=== PATIENT | female | born 1990 | race Caucasian/White ===

== ENCOUNTER 2017-01-08 17:14 | Emergency (ER) | payer BC ==
--- NOTE | 2017-01-08 18:32 | EDM.PDOC ---
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 Patient indicates she's had several positive tests but has PCOS and isn't always aware if she is and or how long she has been .] Review of systems: As per history of present illness and below otherwise all systems reviewed and negative. Past medical history: As per history of present illness and as reviewed below otherwise noncontributory. Surgical history: As per history of present illness and as reviewed below otherwise noncontributory. Social history: No reported history of drug or alcohol abuse. Family history: As per history of present illness and as reviewed below otherwise noncontributory. Physical exam: HEENT: Atraumatic, normocephalic, pupils reactive, negative for conjunctival pallor or scleral icterus, mucous membranes moist, throat clear, neck supple, nontender, trachea midline. Lungs: Clear to auscultation, breath sounds equal bilaterally, chest nontender. Heart: S1S2, regular, negative for clicks, rubs, or JVD. Abdomen: Soft, nondistended, nontender. Negative for masses or hepatosplenomegaly. Negative for costovertebral tenderness. Pelvis: Stable nontender. Genitourinary: Deferred. Rectal: Deferred. Extremities: Atraumatic, negative for cords or calf pain. Neurovascular unremarkable. Neuro: Awake, alert, oriented. Cranial nerves II through XII unremarkable. Cerebellum unremarkable. Motor and sensory unremarkable throughout. Exam nonfocal. Global assessment was benign save painless bleeding as mentioned in history of present illness. Consult with Dr Ramirez the patient and she is to followup with [facility] tomorrow and only give 50 mics of RhoGAM if not arty given as a mini dose would be sufficient per her Diagnostics: [1st Trimester Vag bleed workup] Therapeutics: [] Impression: [Threatened ] Plan: [Prescriptions tomorrow] Definitive disposition and diagnosis as appropriate pending reevaluation and review of above. (Eric Steele) Please note that Dr. Ramirez was contacted and followup was organized. She requested that mini RhoGAM be given but according to the lab they are unable to do that and the patient will have to receive full dose RhoGAM. We will go ahead and proceed to give that dose as lab is unable to accommodate Dr. Ramirez's request. (Pat Damon) - Related Data Allergies/ADRs: Allergies Allergy/AdvReac Type Severity Reaction Status Date / Time No Known Allergies Allergy Verified 01/25/15 16:13 Home Meds: Home Meds . 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 History: Reports: Polycystic Ovaries, Musculoskeletal History: Reports: None Neurological History: Reports: None Psychiatric History: Reports: None Endocrine/Metabolic History: Reports: None Hematologic History: Reports: None Immunologic History: Reports: None Oncologic (Cancer) History: Reports: None Dermatologic History: Reports: None - Infectious Disease History Infectious Disease History: Reports: None - Past Surgical History Head Surgeries/Procedures: Reports: None HEENT Surgical History: Reports: Other (see below) Other HEENT Surgeries/Procedures: 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 Cardiovascular Surgical History: Reports: None Respiratory Surgical History: Reports: None GI Surgical History: Reports: Cholecystectomy Female Surgical History: Reports: section Endocrine Surgical History: Reports: None Neurological Surgical History: Reports: None Musculoskeletal Surgical History: Reports: None Dermatological Surgical History: Reports: None Social & Family History - Family History Family Medical History: Noncontributory - Tobacco Use Smoking Status *Q: Never Smoker Second Hand Smoke Exposure: No - Caffeine Use Caffeine Use: Reports: Coffee - Alcohol Use Days Per Week of Alcohol Use: 0 Number of Drinks Per Day: 0 Total Drinks Per Week: 0 - Recreational Drug Use Recreational Drug Use: No Drug Use in Last 12 Months: No ED ROS GENERAL - Review of Systems Review Of Systems: See Below (See history of present illness) ED EXAM - Physical Exam Exam: See Below (See history of present illness) Departure - Departure Time of Disposition: 20:46 Condition: good - Departure Disposition: Home, Self-Care 01 Clinical Impression: Threatened Referrals: PCP,None [Primary Care Provider] - Kailyn Aleman PA [Physician Instructor Looping] - Forms: ED Department Discharge Additional Instructions: The following information is given to patients seen in the emergency department who are being discharged to home. This information is to outline your options for follow-up care. We provide all patients seen in our emergency department with a follow-up referral. The need for follow-up, as well as the timing and circumstances, are variable depending upon the specifics of your emergency department visit. If you don't have a primary care physician on staff, we will provide you with a referral. We always advise you to contact your personal physician following an emergency department visit to inform them of the circumstance of the visit and for follow-up with them and/or the need for any referrals to a consulting specialist. The emergency department will also refer you to a specialist when appropriate. This referral assures that you have the opportunity for follow-up care with a specialist. All of these measure are taken in an effort to provide you with optimal care, which includes your follow-up. Under all circumstances we always encourage you to contact your private physician who remains a resource for coordinating your care. When calling for follow-up care, please make the office aware that this follow-up is from your recent emergency room visit. If for any reason you are refused follow-up, please contact the [facility] Emergency Department at and asked to speak to the emergency department charge nurse. Nalini Ceron tomorrow and they will establish a time to see you Return to ED as needed as discussed
[2017-01-08] MEDS ORDERED: Rho(D) Immune Globulin 300 MCG/2 ML Syringe IM ONE (20:37)
[2017-01-08 23:45] VITALS: BP 144/87
--- NOTE | 2017-01-09 10:11 | US ---
EXAM DATE: 01/08/17 PATIENT'S AGE: 26 Patient: LUMA CHILDERS Facility: [place], [place] Site . Site : [id number] Study: US OB Pelvis [id number]/11/2017 8:20:10 PM Ordering Physician: Doctor Lobato Final Report: INDICATION: Bleeding TECHNIQUE: Ultrasound OB pelvis transvaginal. Real time virk scale imaging of the pelvis was performed. COMPARISON: None FINDINGS: Pale and Gestational age by LMP: 16 weeks 5 days Estimated due date by LMP: 06/20/2017 Present within the endometrial canal is a hypoechoic septated area in the fundal region. Findings not typical appearance for a gestational sac although this cannot be excluded. If this represents a gestational sac. The mean gestational sac diameter is 1.63 centimeters consistent with gestational age of 6 weeks 5 days. Correlate with beta HCG levels. No evidence of yolk sac or pole. The cervix is closed. The myometrium appears normal. The ovaries are of normal size. There are no suspicious fluid collections noted in the cul-de-sac. IMPRESSION: Present in the image canals the level of the fundus is a septated hypoechoic area. This is not the typical appearance for gestational sac. This represents a gestational sac within the mean gestational sac diameter is consistent with gestational age of 6 weeks 5 days. No evidence of yolk sac or pole or heart tones. Correlate with beta HCG levels. Sonographically normal ovaries and adnexa. No free fluid. Dictated by Gonzalo Skelton MD @ 01/08/2017 8:33:56 PM Dictated by: Gonzalo Skelton MD @ 01/08/2017 20:33:59 (Electronic Signature) Report Signed by Proxy and Original Signed Document filed in the Medical Record. FAIZA
== END 2017-01-08 21:44 | disposition home or self-care (01) ==
LOC: MW.ED 17:14
DX: O20.0 Threatened abortion (principal); Z90.49 Acquired absence of other specified parts of digestive tract; R73.03 Prediabetes; E28.2 Polycystic ovarian syndrome; I10 Essential (primary) hypertension; L29.8 Other pruritus; Z32.00 Encounter for pregnancy test, result unknown
CPT/HCPCS: 36415; 76801; 80053; 80061; 81001; 81025; 82670; 83001; 83002; 83036; 83525; 84144; 84443; 84702; 85025; 85027; 86850; 86900; 86901; 87086; 87480; 87510; 87660; 93005; 96372; 99284; J2790; J2791; 99283

== ENCOUNTER 2017-02-07 06:30 | Day surgery (SDC) | payer BC ==
[~2017-02-07 06:30] MED LIST: Lactated Ringers 1,000 ML IV SCH
--- NOTE | 2017-02-07 07:08 | PCM.PREANE ---
Preanesthetic Assessment - Anesthesia/Transfusion/Family Hx Anesthesia History: Prior Anesthesia Without Reaction Other Type of Anesthesia Reaction Comment: pt states she gets nauseated when cart moves from recovery to room Family History of Anesthesia Reaction: No Transfusion History: No Prior Transfusion(s) Intubation History: Unknown - Review of Systems General: No Symptoms Pulmonary: No Symptoms Cardiovascular: No Symptoms Gastrointestinal: No symptoms Neurological: No Symptoms Other: Reports: None - Physical Assessment O2 Sat by Pulse Oximetry: 98 Respiratory Rate: 16 Vital Signs: Last Vital Signs Temp 37.0 C 02/07/17 06:58 Pulse 91 02/07/17 06:58 Resp 16 02/07/17 06:58 BP 145/93 H 02/07/17 06:58 Pulse Ox 98 02/07/17 06:58 Height: 1.54 m Weight: 87.997 kg ASA Class: 2 Mental Status: Alert & Oriented x3 Airway Class: Mallampati = 2 Dentition: Reports: Normal Dentition Thyro-Mental Finger Breadths: 3 Mouth Opening Finger Breadths: 1 ROM/Head Extension: Full Lungs: Clear to auscultation, Normal respiratory effort Cardiovascular: Regular Rate, Regular Rhythm - Lab Values: Laboratory Last Values WBC 4.67 K/uL (4.0-11.0) 02/07/17 06:44 RBC 3.60 M/uL (4.30-5.90) L 02/07/17 06:44 Hgb 9.9 g/dL (12.0-16.0) L 02/07/17 06:44 Hct 30.7 % (36.0-46.0) L 02/07/17 06:44 MCV 85.3 fL (80.0-98.0) 02/07/17 06:44 MCH 27.5 pg (27.0-32.0) 02/07/17 06:44 MCHC 32.2 g/dL (31.0-37.0) 02/07/17 06:44 RDW Std Deviation 41.8 fl (28.0-62.0) 02/07/17 06:44 RDW Coeff of Trinity 14 % (11.0-15.0) 02/07/17 06:44 Plt Count 274 K/uL (150-400) 02/07/17 06:44 MPV 9.00 fL (7.40-12.00) 02/07/17 06:44 Neut % (Auto) 48.9 % (48.0-80.0) 02/07/17 06:44 Lymph % (Auto) 40.0 % (16.0-40.0) 02/07/17 06:44 Worth % (Auto) 6.4 % (0.0-15.0) 02/07/17 06:44 Eos % (Auto) 4.5 % (0.0-7.0) 02/07/17 06:44 Baso % (Auto) 0.2 % (0.0-1.5) 02/07/17 06:44 Neut # (Auto) 2.3 K/uL (1.4-5.7) 02/07/17 06:44 Lymph # (Auto) 1.9 K/uL (0.6-2.4) 02/07/17 06:44 Worth # (Auto) 0.3 K/uL (0.0-0.8) 02/07/17 06:44 Eos # (Auto) 0.2 K/uL (0.0-0.7) 02/07/17 06:44 Baso # (Auto) 0.0 K/uL (0.0-0.1) 02/07/17 06:44 Nucleated RBC % 0.0 /100WBC 02/07/17 06:44 Nucleated RBCs # 0 K/uL 02/07/17 06:44 - Allergies Allergies/Adverse Reactions: Allergies Allergy/AdvReac Type Severity Reaction Status Date / Time No Known Allergies Allergy Verified 01/25/15 16:13 - Blood Blood Available: No - Anesthesia Plan Pre-Op Medication Ordered: None - Acknowledgements Anesthesia Type Planned: General Anesthesia Pt an Appropriate Candidate for the Planned Anesthesia: Yes Alternatives and Risks of Anesthesia Discussed w Pt/Guardian: Yes Pt/Guardian Understands and Agrees with Anesthesia Plan: Yes PreAnesthesia Questionnaire HEENT History: Reports: Other (see below) Other HEENT History: wears glasses/contacts Cardiovascular History: Reports: None Respiratory History: Reports: None Gastrointestinal History: Reports: None Genitourinary History: Reports: None 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 , Polycystic Ovaries, Musculoskeletal History: Reports: None Neurological History: Reports: None Psychiatric History: Reports: Anxiety Endocrine/Metabolic History: Reports: Obesity/BMI 30+ Hematologic History: Reports: None Immunologic History: Reports: None Oncologic (Cancer) History: Reports: Other (see below) (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) Dermatologic History: Reports: None - Infectious Disease History Infectious Disease History: Reports: None - Past Surgical History Head Surgeries/Procedures: Reports: None HEENT Surgical History: Reports: Naso-sinus surgery, Oral surgery, Other (see below) Other HEENT Surgeries/Procedures: oral surgery x4 for excision of tumor and skin grafts, sinus surgery x1 GI Surgical History: Reports: Cholecystectomy Female Surgical History: Reports: section (x2) Dermatological Surgical History: Reports: Skin graft - SUBSTANCE USE Smoking Status *Q: Never Smoker Second Hand Smoke Exposure: No Days Per Week of Alcohol Use: 0 Number of Drinks Per Day: 0 Total Drinks Per Week: 0 Recreational Drug Use History: No - HOME MEDS Home Medications: Home Meds LORazepam 1 mg PO ASDIRECTED PRN 02/06/17 [History] metFORMIN HCl [Metformin HCl] 500 mg PO BID 02/06/17 [History] - CURRENT (IN HOUSE) MEDS Current Meds: Current Medications Lactated Ringer's (Ringers, Lactated) 1,000 mls @ 100 mls/hr IV ASDIRECTED SHANELL Last Admin: 02/07/17 06:57 Dose: 100 mls/hr
[2017-02-07] MEDS ORDERED: Lidocaine 2% 5 ML SDV ONE (07:17)
[2017-02-07] MEDS ORDERED: Ondansetron 4 MG/2 ML SDV ONE (07:17)
[2017-02-07] MEDS ORDERED: Propofol 200 MG/20 ML SDV ONE (07:17)
[2017-02-07] MEDS ORDERED: Midazolam 1 MG/ML 2 ML SDV ONE (07:17)
[2017-02-07] MEDS ORDERED: fentaNYL 250 MCG/5 ML SDV ONE (07:17)
[2017-02-07] MEDS ORDERED: Scopolamine 1.5 MG Transdermal Patch TRDERM PRN (07:21)
[2017-02-07] MEDS ORDERED: Sodium Chloride 0.9% 20 ML ONE (07:48)
[2017-02-07] MEDS ORDERED: ceFAZolin 1 GM Vial ONE (07:48)
[2017-02-07] MEDS ORDERED: fentaNYL 100 MCG/2 ML SDV IVPUSH PRN (08:06)
[2017-02-07] MEDS ORDERED: Methylergonovine 0.2 MG/1 ML Amp ONE (08:09)
--- NOTE | 2017-02-07 08:35 | PCM.OPNOTE ---
- General Post-Op/Procedure Note Date of Surgery/Procedure: 02/07/17 Operative Procedure(s): suction dilatation and curettage Findings: Uterus anteverted, 9 week size preop, 7-8 week size, firm postop, sounds to 9 cm , moderate amount of tissue obtained. Pre Op Diagnosis: incomplete miscarriage with hemorrhage Post-Op Diagnosis: Same Anesthesia Technique: General mask Primary Surgeon: Sarah Messer Anesthesia Provider: Gonzalo Laws Cork Grinder: Dante Whitlock Pathology: products of conception Fluid Replacement, Intraop: 700 EBL in mLs: 70 Complications: None Known Condition: Good
[2017-02-07 11:14] VITALS: BP 136/70
--- NOTE | 2017-02-08 06:13 | OR ---
SURGEON: Sarah Messer M.D. DATE OF PROCEDURE: 02/07/2017 PREOPERATIVE DIAGNOSIS: Incomplete with hemorrhage. POSTOPERATIVE DIAGNOSIS: Incomplete with hemorrhage. PROCEDURE: Suction, dilatation, and curettage. ANESTHESIA: General mask. ESTIMATED BLOOD LOSS: 70 mL. FLUIDS: 700 mL crystalloid. FINDINGS: Preoperatively, uterus was anteverted 9-week size, somewhat boggy. Postoperatively, the uterus was anteverted 7 to 8 week size firm with minimal bleeding. The uterus sounded to 9 cm. COMPLICATIONS: None known. DISPOSITION: Stable to recovery. PATHOLOGY SPECIMEN: Products of conception. BRIEF HISTORY: This is a 26-year-old female. She has a known intrauterine loss which was initially diagnosed. She requested expectant management followed by Cytotec. After the Cytotec, she felt that she passed tissue. Her hCG dropped from greater than a 1000 down to less than 100. However, she continued to have irregular and sometimes heavy bleeding. Therefore, at her 2-week postoperative check, I did repeat her hCG which had not dropped as expected and therefore followup ultrasound was performed, which showed retained products of conception. Therefore, I recommended proceeding with suction, dilatation, and curettage with risks discussed including bleeding, infection, uterine perforation with injury to surrounding organs, risk of thromboembolic event, and risk of anesthesia. Understanding all these risks, she does desire to proceed. The patient is Rh negative and has received RhoGAM in the office. DESCRIPTION OF PROCEDURE: With the patient in dorsal lithotomy position, under adequate general mask analgesia (please see anesthesia note for an assessment of her airway secondary to prior oral mass). The perineum and vagina were prepped with Betadine and draped in usual fashion for vaginal surgery. The bladder had been drained with a straight catheter. SCDs were in place and she did receive 2 g of Ancef IV. After an appropriate time-out was held. Bimanual examination revealed an anteverted 9-week size uterus, somewhat boggy. The speculum was placed in the vagina. The anterior cervix was grasped with an Allis clamp. The 2 mm Hegar dilator was easily passed through the internal os of the cervix to the fundus which sounded to 9 cm. The cervix was further dilated to a 10 mm Hegar dilator. The 10 mm suction curette was placed to the uterine fundus and with pressure in place was retracted in repetitively turning motion with a moderate amount of tissue obtained. On the first pass 3 additional passes were taken, no further tissue was obtained. There was minimal blood. Therefore, very gentle sharp curettage was performed at the 12, 3, 6, and 9 o'clock position. A good uterine cry was felt on all surfaces. Therefore, the speculum was removed from the vagina. Bimanual examination revealed a firm uterus. Due to her history of bleeding and hemoglobin today of 9.9, she did receive Methergine 0.2 mg IM prior to the end of the case. Final sponge, needle, instrument counts were reported as correct. There were no known complications. The patient was transferred to recovery in good condition. ADONIS CASTRO /[id number]
== END 2017-02-07 10:15 | disposition home or self-care (01) ==
LOC: MW.SDS 06:30
PROVIDERS: ATTEND Obstetrics & Gynecology
DX: O03.1 Delayed or excessive hemorrhage following incomplete spontaneous abortion (principal); E28.2 Polycystic ovarian syndrome; D64.9 Anemia, unspecified; Z98.890 Other specified postprocedural states; Z90.49 Acquired absence of other specified parts of digestive tract; Z98.818 Other dental procedure status
CPT/HCPCS: 36415; 59812; 85025; 86850; 86870; 86900; 86901; 88305; A9270; J0690; J2210; J2250; J2405; J3010; J7120; 01965; J2704

== ENCOUNTER 2018-06-23 05:02 | Inpatient (IN) | payer BC, OTHER ==
[2018-06-23] MEDS ORDERED: Sodium Chloride 0.9% 10 ML Syringe FLUSH PRN (05:08)
[2018-06-23] MEDS ORDERED: Sodium Chloride 0.9% 2.5 ML Syringe FLUSH PRN (05:08)
[2018-06-23] MEDS ORDERED: Citric Acid/Sodium Citrate Solution 30 ML Cup PO ONE (05:08)
[2018-06-23] MEDS ORDERED: ceFAZolin 2 GM in Premix Bag 1 BAG IV ONE (05:11)
[2018-06-23] MEDS ORDERED: Oxytocin/0.9 % Sodium Chloride 30 UNIT/500 ML BAG IV SCH (05:15)
[2018-06-23] MEDS: Lactated Ringers 1,000 ML IV SCH ×2 (05:43→07:21)
--- NOTE | 2018-06-23 07:07 | PCM.PREANE ---
Preanesthetic Assessment - Anesthesia/Transfusion/Family Hx Anesthesia History: Prior Anesthesia Reaction (prior spinal with severe NV, pt requests NO DURAMORPH this time) Other Type of Anesthesia Reaction Comment: pt states she gets nauseated when cart moves from recovery to room Family History of Anesthesia Reaction: No Transfusion History: No Prior Transfusion(s) Intubation History: Unknown - Review of Systems General: No Symptoms Pulmonary: No Symptoms Cardiovascular: No Symptoms Gastrointestinal: No Symptoms Neurological: No Symptoms Other: Reports: None - Physical Assessment NPO Status Date: 06/22/18 NPO Status Time: 23:00 Height: 5 ft Weight: 88.904 kg ASA Class: 2 Mental Status: Alert & Oriented x3 Airway Class: Mallampati = 2 Dentition: Reports: Normal Dentition Thyro-Mental Finger Breadths: 3 (Small mouth) Mouth Opening Finger Breadths: 3 ROM/Head Extension: Full Lungs: Clear to Auscultation, Normal Respiratory Effort Cardiovascular: Regular Rate, Regular Rhythm - Lab Values: Laboratory Last Values WBC 8.05 K/uL (4.0-11.0) 06/22/18 15:58 RBC 3.78 M/uL (4.30-5.90) L 06/22/18 15:58 Hgb 10.1 g/dL (12.0-16.0) L 06/22/18 15:58 Hct 31.1 % (36.0-46.0) L 06/22/18 15:58 MCV 82.3 fL (80.0-98.0) 06/22/18 15:58 MCH 26.7 pg (27.0-32.0) L 06/22/18 15:58 MCHC 32.5 g/dL (31.0-37.0) 06/22/18 15:58 RDW Std Deviation 41.6 fl (28.0-62.0) 06/22/18 15:58 RDW Coeff of Trinity 14 % (11.0-15.0) 06/22/18 15:58 Plt Count 227 K/uL (150-400) 06/22/18 15:58 MPV 9.50 fL (7.40-12.00) 06/22/18 15:58 Nucleated RBC % 0.0 /100WBC 06/22/18 15:58 Nucleated RBCs # 0 K/uL 06/22/18 15:58 Blood Type O NEGATIVE 06/22/18 15:58 Antibody Screen NEGATIVE 06/22/18 15:58 - Allergies Allergies/Adverse Reactions: Allergies Allergy/AdvReac Type Severity Reaction Status Date / Time No Known Allergies Allergy Verified 06/18/18 13:21 - Anesthesia Plan Free Text/Narrative:: Upper Right portion of the oral hard palate shows grafting from her tumor removal surgery. Patient denies any surgical intervention into the lower portions of the airway. 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: Ectopic , Polycystic Ovaries, : 5 Para: 2 LMP (Approximate): Musculoskeletal History: Reports: None Neurological History: Reports: None Psychiatric History: Reports: Anxiety Endocrine/Metabolic History: Reports: Diabetes, Gestational, Obesity/BMI 30+ Hematologic History: Reports: None Immunologic History: Reports: None Oncologic (Cancer) History: Reports: None Dermatologic History: Reports: None - Infectious Disease History Infectious Disease History: Reports: Chicken Pox - Past Surgical History Head Surgeries/Procedures: Reports: None HEENT Surgical History: Reports: Naso-Sinus Surgery, Oral Surgery, Other (See Below) Other HEENT Surgeries/Procedures: oral surgery x4 for excision of tumor and skin grafts, sinus surgery x1 Cardiovascular Surgical History: Reports: None Respiratory Surgical History: Reports: None GI Surgical History: Reports: Cholecystectomy Female Surgical History: Reports: Section, Other (See Below) Other Female Surgeries/Procedures: x2 Endocrine Surgical History: Reports: None Neurological Surgical History: Reports: None Musculoskeletal Surgical History: Reports: None Dermatological Surgical History: Reports: Skin Graft - SUBSTANCE USE Smoking Status *Q: Never Smoker Second Hand Smoke Exposure: No Recreational Drug Use History: No - HOME MEDS Home Medications: Home Meds Insulin Isophane NPH, Human [NovoLIN N] 15 units SUBCUT BEDTIME 06/18/18 [ History] PNV95/Ferrous Fumarate/FA [ Vitamin Tablet] 1 tab PO DAILY 06/18/18 [ History] Sertraline HCl 50 mg PO DAILY 06/18/18 [History] - CURRENT (IN HOUSE) MEDS Current Meds: Current Medications Lactated Ringer's (Ringers, Lactated) 1,000 mls @ 500 mls/hr IV BOLUS SHANELL Last Admin: 06/23/18 05:43 Dose: 500 mls/hr Oxytocin/Sodium Chloride (Oxytocin 30 Unit/500 Ml-Ns) 30 unit in 500 mls @ 250 mls/hr IV TITRATE SHANELL Sodium Chloride (Saline Flush) 10 ml FLUSH ASDIRECTED PRN PRN Reason: Keep Vein Open Sodium Chloride (Saline Flush) 2.5 ml FLUSH ASDIRECTED PRN PRN Reason: Keep Vein Open Discontinued Medications Citric Acid/Sodium Citrate (Bicitra Solution) 30 ml PO ONETIME ONE Stop: 06/23/18 05:09 Cefazolin Sodium/Dextrose 2 gm (/ Premix) 50 mls @ 100 mls/hr IV ONETIME ONE Stop: 06/23/18 05:40
[2018-06-23] MEDS ORDERED: Octyl 2-Cyanoacrylate 1 Tube ONE (07:25)
[2018-06-23] MEDS ORDERED: Citric Acid/Sodium Citrate Solution 30 ML Cup ONE (07:52)
[2018-06-23] MEDS ORDERED: Sodium Chloride 0.9% 20 ML ONE (08:18)
[2018-06-23] MEDS ORDERED: ePHEDrine 50 MG/ML SDV ONE (08:18)
[2018-06-23] MEDS ORDERED: Oxytocin 10 Units/1 ML SDV ONE (08:18)
[2018-06-23] MEDS ORDERED: Ondansetron 4 MG/2 ML SDV ONE (08:18)
[2018-06-23] MEDS ORDERED: ceFAZolin/Dextrose,Iso-Osmotic 2 GM/50 ML Duplex Bag IV ONE (08:19)
[2018-06-23] MEDS ORDERED: Midazolam 1 MG/ML 2 ML SDV ONE (08:19)
[2018-06-23] MEDS ORDERED: Methylergonovine 0.2 MG/1 ML Amp ONE (08:42)
--- NOTE | 2018-06-23 09:09 | PCM.OPNOTE ---
- General Post-Op/Procedure Note Date of Surgery/Procedure: 06/23/18 Operative Procedure(s): repeat low transverse with bilateral salpingectomy Findings: Normal pelvis, with omental adhesions to anterior abdominal wall, liveborn female 06/08 3080 grams. Pre Op Diagnosis: 38 weeks, GDMA2, history of ENT tumor, prior , desires sterilization Post-Op Diagnosis: Same Anesthesia Technique: Spinal Primary Surgeon: Sarah Messer Anesthesia Provider: Gonzalo Laws Carbon Paste Mixer Operator: Dante Whitlock Pathology: bilateral fallopian tubes, placenta disposal. Fluid Replacement, Intraop: 2,200 Output, Urine Amount: 25 EBL in mLs: 600 Complications: None Known Condition: Good Free Text/Narrative:: Intake & Output 06/22/18 06/23/18 06/23/18 22:59 06:59 14:59 Intake Total 1000 Balance 1000
[2018-06-23] MEDS ORDERED: Bisacodyl 10 MG Supp RECTAL PRN (09:10)
[2018-06-23] MEDS ORDERED: Acetaminophen/oxyCODONE 325-5 MG Tab PO PRN (09:10)
[2018-06-23] MEDS ORDERED: Lanolin 100% Cream 7 GM Tube TOP PRN (09:10)
[2018-06-23] MEDS ORDERED: diphenhydrAMINE 50 MG/ML SDV IVPUSH PRN (09:10)
[2018-06-23] MEDS ORDERED: Ondansetron 4 MG/2 ML SDV IV PRN (09:10)
[2018-06-23] MEDS ORDERED: Tranexamic Acid 1,000 MG in Sodium Chloride 0.9% 100 ML IV PRN (09:10)
[2018-06-23] MEDS ORDERED: Lactated Ringers 1,000 ML IV SCH (09:15)
[2018-06-23] MEDS: Ketorolac 30 MG/ML SDV IVPUSH SCH ×3 (09:37→21:00)
--- NOTE | 2018-06-23 10:13 | PCM.POSTAN ---
POST ANESTHESIA ASSESSMENT - MENTAL STATUS Mental Status: Alert, Oriented - RESPIRATORY Respiratory Status: Respiratory Rate WNL, Airway Patent, O2 Saturation Stable - CARDIOVASCULAR CV Status: Pulse Rate WNL, Blood Pressure Stable - GASTROINTESTINAL GI Status: No Symptoms - PAIN Pain Score: 0 (spinal receding slowly) - POST OP HYDRATION Hydration Status: Adequate & Stable
[2018-06-23] MEDS: fentaNYL/Normal Saline 300 MCG/30 ML PCA Vial IV SCH ×2 (10:39→17:00)
--- NOTE | 2018-06-23 12:07 | OR ---
SURGEON: Sarah Messer M.D. DATE OF PROCEDURE: 06/23/2018 PREOPERATIVE DIAGNOSES: 1. 38 week intrauterine . 2. Prior delivery. 3. Gestational diabetes type A2, on insulin. 4. History of ENT tumor with limited airway. 5. Desires sterilization. POSTOPERATIVE DIAGNOSES: 1. 38 week intrauterine . 2. Prior delivery. 3. Gestational diabetes type A2, on insulin. 4. History of ENT tumor with limited airway. 5. Desires sterilization. PROCEDURES: Repeat low-transverse section with bilateral salpingectomy. PROTECTION ANALYST: Beni Elder MS4. ANESTHESIA: Spinal. ESTIMATED BLOOD LOSS: 600 mL. FLUIDS: 2200 mL. FINDINGS: Live born female, scores 9 and 9. Weight 3080 g. Normal-appearing uterus, tubes, and ovaries. Omental adhesions to the anterior abdominal wall. Low-lying anterior placenta. COMPLICATIONS: None known. DISPOSITION: Mother is in recovery in good condition. is in nursery in good condition. BRIEF HISTORY: This is a 27-year-old female, who presents for repeat delivery due to multiple risk factors, including repeat , prior , diabetes, and particularly related to airway disease. She was approved for permanent sterilization by bilateral salpingectomy. Alternatives were offered including hormonal contraception, long-acting reversible contraception and sterilization including vasectomy and she declined all of them, desires bilateral salpingectomy at the time of understanding risk of regret as well as reduced risk of ovarian cancer. She understands it is irreversible. Risk of delivery was discussed including bleeding, infection, injury to bowel, bladder, blood vessels, ureters or other organs, risk of thromboembolic event, and risk of anesthesia. Understanding all these risks, she does desire to proceed. DESCRIPTION OF PROCEDURE: With the patient in the left tilt position, under adequate spinal analgesia, the abdomen was prepped with chlorhexidine and draped in usual fashion for abdominal surgery. SCDs were in place. Rey catheter had been placed. An appropriate time-out was held. After documentation of adequate analgesia was performed, the prior cicatrix was excised and the incision was carried through subcutaneous tissue to the fascia, which was scored transversely in the midline. The fascial incision was extended using curved [place] scissors. The fascia was elevated from the underlying rectus muscles and using sharp and blunt dissection. The rectus muscles were sharply in the midline. A finger was used to enter the peritoneal cavity. There were omental adhesions cephalad, but none caudad to the entry site. The incision was extended using sharp and blunt dissection. The Tj O retractor was placed. The visceroperitoneum over the lower uterine segment was incised to develop an adequate bladder flap. The transverse curvilinear incision was made over the lower uterine segment with a scalpel and a finger was used to enter the amniotic cavity. Clear fluid was noted. The incision was extended. The anterior placenta extended up to the level of the incision and there was some bleeding from the placenta I elevated the head to the uterine incision, but with fundal pressure. I felt it was safer to quickly deliver the infant with the bleeding anterior placenta. Therefore I did place the vacuum in the sagittal midline 2 cm with mid point 2 cm anterior to the posterior fontanelle and with no pop offs and minimal pressure, I was able to deliver the head near the uterine incision with fundal pressure with subsequent delivery of the 's shoulders and body without any difficulty. The infant was bulb suctioned by nose and mouth. The cord was clamped x2 and cut and the was handed to the nurse in attendance at delivery. The infant is a liveborn female, scores 9 and 9, weighing 3080 g. The was noted to have a VSD. Dr. Leal has been notified. The had a echocardiogram antepartum. The placental plane was able to be palpated and the placenta was removed by manual extraction. The uterus was cleaned with a dry laparotomy tape. The cervix was opened with a ring forceps. The uterine incision was closed with a running lock suture of 0 Polysorb followed by an imbricating layer of 0 Polysorb. The fundus was firm. The tubes and ovaries were inspected, appeared normal. The left tube was grasped with a [place] clamp. The mesosalpinx was incised using the Harmonic wave setting of 3 to the proximal tube where it was transected. This was repeated on the opposite side. The base of the mesosalpinx was inspected and was hemostatic. The uterine incision was inspected and was hemostatic. Fundal massage was performed and the uterus became very firm with fundal massage. However, I did give her Methergine 0.2 mg subcu prophylactically and the retractor was removed. The uterine incision was again inspected. The rectus muscle and peritoneum were loosely approximated in the midline using a running mattress suture of 0 Polysorb. The fascia was closed with a running suture of 0 Polysorb. Subcutaneous tissue was irrigated. Any areas of bleeding that were noted were cauterized. The skin was closed with a running subcuticular suture of 3-0 Monocryl followed by Dermabond. Final sponge, needle, and instrument counts were reported as correct. There were no known complications. Mother was transferred to recovery in good condition. Infant is in nursery in good condition. ADONIS CASTRO /[id number]
--- NOTE | 2018-06-23 19:39 | PCM48HPAN ---
Post Anesthesia Note - EVALUATION WITHIN 48HRS OF ANESTHETIC Vital Signs in Normal Range: Yes Patient Participated in Evaluation: Yes Respiratory Function Stable: Yes Airway Patent: Yes Cardiovascular Function Stable: Yes Hydration Status Stable: Yes Pain Control Satisfactory: Yes Nausea and Vomiting Control Satisfactory: Yes Mental Status Recovered: Yes Resp Rate: 16
[2018-06-23] MEDS: Docusate Sodium 100 MG Cap PO SCH (21:00)
[2018-06-24] MEDS: fentaNYL/Normal Saline 300 MCG/30 ML PCA Vial IV SCH (00:40)
[2018-06-24] MEDS: Ketorolac 30 MG/ML SDV IVPUSH SCH ×2 (03:39→09:04)
--- NOTE | 2018-06-24 08:12 | PCM.PNPP ---
<Carol Avery - Last Filed: 06/24/18 08:09> - General Info Date of Service: 06/24/18 Functional Status: Reports: Pain Controlled, Tolerating Diet, Ambulating, Urinating - Review of Systems General: Denies: Fever, Weakness, Fatigue Pulmonary: Denies: Shortness of Breath, Pleuritic Chest Pain, Cough Cardiovascular: Denies: Chest Pain, Palpitations, Dyspnea on Exertion Gastrointestinal: Denies: Abdominal Pain Genitourinary: Denies: Dysuria - General Info Date of Service: 06/24/18 - Patient Data Vital Signs - Most Recent: Last Vital Signs Temp 36.6 C 06/24/18 03:56 Pulse 71 06/24/18 03:56 Resp 16 06/24/18 03:56 BP 124/61 06/24/18 03:56 Pulse Ox 97 06/24/18 03:56 Weight - Most Recent: 88.904 kg I&O - Last 24 Hours: Intake & Output 06/23/18 06/24/18 06/24/18 22:59 06:59 14:59 Intake Total 800 Output Total 450 Balance 350 Lab Results - Last 24 Hours: Laboratory Results - last 24 hr 06/23/18 06/23/18 06/24/18 Range/Units 08:25 11:14 06:33 Hgb 8.7 L (12.0-16.0) g/dL Hct 27.0 L (36.0-46.0) % Cord ABG pH 7.294 (7.18-7.38) Cord ABG Base Excess -4 (-10--2) Cord VBG pH 7.370 (7.25-7.45) Cord VBG Base Excess -4 (-10--2) Screen NEGATIVE (NEGATIVE) RhIG Candidate? YES Rhogam Indicated YES, BABY RH POS H Med Orders - Current: Current Medications Bisacodyl (Dulcolax) 10 mg RECTAL ONETIME PRN PRN Reason: Constipation Diphenhydramine HCl (Benadryl) 25 mg IVPUSH Q6H PRN PRN Reason: Itching or Nausea Docusate Sodium (Colace) 100 mg PO BID SHANELL Last Admin: 06/23/18 21:00 Dose: 100 mg Emollient Ointment (Lansinoh Hpa) 0 gm TOP ASDIRECTED PRN PRN Reason: Sore Nipples Fentanyl Citrate (Fentanyl In Ns 300 Mcg/30 Ml Associate Field Service Engineer) 10 mcg IV ASDIRECTED SHANELL; Protocol Last Admin: 06/24/18 00:40 Dose: 10 mcg Tranexamic Acid 1,000 mg/ (Sodium Chloride) 110 mls @ 660 mls/hr IV ONETIME PRN PRN Reason: Bleeding Lactated Ringer's (Ringers, Lactated) 1,000 mls @ 125 mls/hr IV ASDIRECTED [facility] Ibuprofen (Motrin) 800 mg PO Q8H PRN PRN Reason: mild pain or fever Ketorolac Tromethamine (Toradol) 30 mg IVPUSH Q6H SHANELL Stop: 06/24/18 09:16 Last Admin: 06/24/18 03:39 Dose: 30 mg Ondansetron HCl (Zofran) 4 mg IV Q4H PRN PRN Reason: Nausea/Vomiting Oxycodone/Acetaminophen (Percocet 325-5 Mg) 1 tab PO Q4H PRN PRN Reason: Pain (moderate 4-6) Oxycodone/Acetaminophen (Percocet 325-5 Mg) 2 tab PO Q4H PRN PRN Reason: Pain (moderate 4-6) Pantoprazole Sodium (Protonix) 40 mg PO DAILY SHANELL Discontinued Medications Cefazolin Sodium/Dextrose (Ancef) Confirm Administered Dose 2 gm IV .STK-MED ONE Stop: 06/23/18 08:20 Citric Acid/Sodium Citrate (Bicitra Solution) 30 ml PO ONETIME ONE Stop: 06/23/18 05:09 Last Admin: 06/23/18 07:57 Dose: 30 ml Citric Acid/Sodium Citrate (Bicitra Solution) Confirm Administered Dose 30 ml .ROUTE .STK-MED ONE Stop: 06/23/18 07:53 Last Admin: 06/23/18 13:24 Dose: Not Given Ephedrine Sulfate (Ephedrine Sulfate) Confirm Administered Dose 50 mg .ROUTE .STK-MED ONE Stop: 06/23/18 08:19 Lactated Ringer's (Ringers, Lactated) 1,000 mls @ 500 mls/hr IV BOLUS [facility] Last Admin: 06/23/18 07:21 Dose: 500 mls/hr Oxytocin/Sodium Chloride (Oxytocin 30 Unit/500 Ml-Ns) 30 unit in 500 mls @ 250 mls/hr IV TITRATE SHANELL Cefazolin Sodium/Dextrose 2 gm (/ Premix) 50 mls @ 100 mls/hr IV ONETIME ONE Stop: 06/23/18 05:40 Last Admin: 06/23/18 13:24 Dose: Not Given Sodium Chloride (Normal Saline) Confirm Administered Dose 20 mls @ as directed .ROUTE .STK-MED ONE Stop: 06/23/18 08:19 Methylergonovine Maleate (Methergine) Confirm Administered Dose 0.2 mg .ROUTE .STK-MED ONE Stop: 06/23/18 08:43 Midazolam HCl (Versed 1 Mg/Ml) Confirm Administered Dose 2 mg .ROUTE .STK-MED ONE Stop: 06/23/18 08:20 Octyl Cyanoacrylate (Dermabond Advance) Confirm Administered Dose 1 applic .ROUTE .STK-MED ONE Stop: 06/23/18 07:26 Ondansetron HCl (Zofran) Confirm Administered Dose 4 mg .ROUTE .STK-MED ONE Stop: 06/23/18 08:19 Oxytocin (Pitocin) Confirm Administered Dose 20 unit .ROUTE .STK-MED ONE Stop: 06/23/18 08:19 Sodium Chloride (Saline Flush) 10 ml FLUSH ASDIRECTED PRN PRN Reason: Keep Vein Open Sodium Chloride (Saline Flush) 2.5 ml FLUSH ASDIRECTED PRN PRN Reason: Keep Vein Open - Interaction Infant Disposition, : [place] in Room with Family Feeding: Bottle Fed Infant Support Person: - Recovery Exam Fundal Tone: Firm Fundal Level: 1 Fingerbreadths Below Umbilicus Fundal Placement: Midline Lochia Amount: Scant Lochia Color: Rubra/Red Perineum Description: Intact, Minimal Bruising/Swelling Episiotomy/Laceration: Approximated Bladder Status: Indwelling Catheter in Place Urinary Elimination: Indwelling Catheter - Exam General: Alert, Oriented Neck: Supple Lungs: Clear to Auscultation, Normal Respiratory Effort Cardiovascular: Regular Rate, Regular Rhythm GI/Abdominal Exam: Normal Bowel Sounds, Soft, Non-Tender, No Distention, No Mass Extremities: Normal Inspection, Non-Tender, Normal Capillary Refill, Pedal Edema (trace) Skin: Warm, Dry, Intact - Problem List & Annotations (1) delivery delivered SNOMED Code(s): 695085135 Code(s): O82 - ENCOUNTER FOR DELIVERY WITHOUT INDICATION Status: Acute Current Visit: Yes - Problem List Review Problem List Initiated/Reviewed/Updated: Yes - Assessment Assessment:: POD#1 s/p RLTCS with bilateral salpingectomy. Bottle feeding. Rhogam will be given. - Plan Plan:: Continue routine post-op cares. Will continue Iron supplementation for anemia. <Sarah Messer - Last Filed: 06/24/18 08:32> - Patient Data Vital Signs - Most Recent: Last Vital Signs Temp 36.6 C 06/24/18 03:56 Pulse 71 06/24/18 03:56 Resp 16 06/24/18 03:56 BP 124/61 06/24/18 03:56 Pulse Ox 97 06/24/18 03:56 I&O - Last 24 Hours: Intake & Output 06/23/18 06/24/18 06/24/18 22:59 06:59 14:59 Intake Total 800 Output Total 450 Balance 350 Lab Results - Last 24 Hours: Laboratory Results - last 24 hr 06/23/18 06/23/18 06/24/18 Range/Units 08:25 11:14 06:33 Hgb 8.7 L (12.0-16.0) g/dL Hct 27.0 L (36.0-46.0) % Cord ABG pH 7.294 (7.18-7.38) Cord ABG Base Excess -4 (-10--2) Cord VBG pH 7.370 (7.25-7.45) Cord VBG Base Excess -4 (-10--2) Screen NEGATIVE (NEGATIVE) RhIG Candidate? YES Rhogam Indicated YES, BABY RH POS H Med Orders - Current: Current Medications Bisacodyl (Dulcolax) 10 mg RECTAL ONETIME PRN PRN Reason: Constipation Diphenhydramine HCl (Benadryl) 25 mg IVPUSH Q6H PRN PRN Reason: Itching or Nausea Docusate Sodium (Colace) 100 mg PO BID [facility] Last Admin: 06/24/18 08:20 Dose: 100 mg Emollient Ointment (Lansinoh Hpa) 0 gm TOP ASDIRECTED PRN PRN Reason: Sore Nipples Fentanyl Citrate (Fentanyl In Ns 300 Mcg/30 Ml Associate Field Service Engineer) 10 mcg IV ASDIRECTED SHANELL; Protocol Last Admin: 06/24/18 00:40 Dose: 10 mcg Tranexamic Acid 1,000 mg/ (Sodium Chloride) 110 mls @ 660 mls/hr IV ONETIME PRN PRN Reason: Bleeding Lactated Ringer's (Ringers, Lactated) 1,000 mls @ 125 mls/hr IV ASDIRECTED [facility] Ibuprofen (Motrin) 800 mg PO Q8H PRN PRN Reason: mild pain or fever Ketorolac Tromethamine (Toradol) 30 mg IVPUSH Q6H SHANELL Stop: 06/24/18 09:16 Last Admin: 06/24/18 03:39 Dose: 30 mg Ondansetron HCl (Zofran) 4 mg IV Q4H PRN PRN Reason: Nausea/Vomiting Oxycodone/Acetaminophen (Percocet 325-5 Mg) 1 tab PO Q4H PRN PRN Reason: Pain (moderate 4-6) Last Admin: 06/24/18 08:20 Dose: 1 tab Oxycodone/Acetaminophen (Percocet 325-5 Mg) 2 tab PO Q4H PRN PRN Reason: Pain (moderate 4-6) Pantoprazole Sodium (Protonix) 40 mg PO DAILY SHANELL Discontinued Medications Cefazolin Sodium/Dextrose (Ancef) Confirm Administered Dose 2 gm IV .STK-MED ONE Stop: 06/23/18 08:20 Citric Acid/Sodium Citrate (Bicitra Solution) 30 ml PO ONETIME ONE Stop: 06/23/18 05:09 Last Admin: 06/23/18 07:57 Dose: 30 ml Citric Acid/Sodium Citrate (Bicitra Solution) Confirm Administered Dose 30 ml .ROUTE .STK-MED ONE Stop: 06/23/18 07:53 Last Admin: 06/23/18 13:24 Dose: Not Given Ephedrine Sulfate (Ephedrine Sulfate) Confirm Administered Dose 50 mg .ROUTE .STK-MED ONE Stop: 06/23/18 08:19 Lactated Ringer's (Ringers, Lactated) 1,000 mls @ 500 mls/hr IV BOLUS SHANELL Last Admin: 06/23/18 07:21 Dose: 500 mls/hr Oxytocin/Sodium Chloride (Oxytocin 30 Unit/500 Ml-Ns) 30 unit in 500 mls @ 250 mls/hr IV TITRATE SHANELL Cefazolin Sodium/Dextrose 2 gm (/ Premix) 50 mls @ 100 mls/hr IV ONETIME ONE Stop: 06/23/18 05:40 Last Admin: 06/23/18 13:24 Dose: Not Given Sodium Chloride (Normal Saline) Confirm Administered Dose 20 mls @ as directed .ROUTE .STK-MED ONE Stop: 06/23/18 08:19 Methylergonovine Maleate (Methergine) Confirm Administered Dose 0.2 mg .ROUTE .STK-MED ONE Stop: 06/23/18 08:43 Midazolam HCl (Versed 1 Mg/Ml) Confirm Administered Dose 2 mg .ROUTE .STK-MED ONE Stop: 06/23/18 08:20 Octyl Cyanoacrylate (Dermabond Advance) Confirm Administered Dose 1 applic .ROUTE .STK-MED ONE Stop: 06/23/18 07:26 Ondansetron HCl (Zofran) Confirm Administered Dose 4 mg .ROUTE .STK-MED ONE Stop: 06/23/18 08:19 Oxytocin (Pitocin) Confirm Administered Dose 20 unit .ROUTE .STK-MED ONE Stop: 06/23/18 08:19 Sodium Chloride (Saline Flush) 10 ml FLUSH ASDIRECTED PRN PRN Reason: Keep Vein Open Sodium Chloride (Saline Flush) 2.5 ml FLUSH ASDIRECTED PRN PRN Reason: Keep Vein Open - Problem List & Annotations (1) delivery delivered SNOMED Code(s): 371261023 Code(s): O82 - ENCOUNTER FOR DELIVERY WITHOUT INDICATION Status: Acute Current Visit: Yes - Problem List Review Problem List Initiated/Reviewed/Updated: Yes - My Orders Last 24 Hours: My Active Orders 06/23/18 09:10 Patient Status [ADT] Routine Ambulate [RC] PER UNIT ROUTINE Communication Order [RC] PER UNIT ROUTINE Communication Order [RC] PER UNIT ROUTINE May Shower [RC] ASDIRECTED Notify Provider Intake and Out [RC] ASDIRECTED Notify Provider Vital Signs [RC] ASDIRECTED RT Incentive Spirometry [RC] Q2HWA Vital Signs [RC] PER UNIT ROUTINE Acetaminophen/oxyCODONE [Percocet 325-5 MG] 1 tab PO Q4H PRN Acetaminophen/oxyCODONE [Percocet 325-5 MG] 2 tab PO Q4H PRN Bisacodyl [Dulcolax] 10 mg RECTAL ONETIME PRN Ibuprofen [Motrin] 800 mg PO Q8H PRN Lanolin [Lansinoh HPA] See Dose Instructions TOP ASDIRECTED PRN Ondansetron [Zofran] 4 mg IV Q4H PRN Tranexamic Acid [Cyklokapron] 1,000 mg Sodium Chloride 0.9% [Normal Saline] 100 ml IV ONETIME diphenhydrAMINE [Benadryl] 25 mg IVPUSH Q6H PRN Abdominal Binder [OM.PC] Urgent Assess Lochia [WOMSER] Per Unit Routine Assess Uterine Involution [WOMSER] Per Unit Routine Breast Pump [WOMSER] Per Unit Routine Peripheral IV Discontinue [OM.PC] Routine Sequential Compression Device [OM.PC] Per Unit Routine Resuscitation Status Routine 06/23/18 09:11 Intake and Output [RC] Q12H 06/23/18 09:15 Ketorolac [Toradol] 30 mg IVPUSH Q6H Lactated Ringers [Ringers, Lactated] 1,000 ml IV ASDIRECTED 06/23/18 09:30 fentaNYL/Normal Saline [fentaNYL in NS 300 MCG/30 ML ORTHOPEDIC SPECIALIST] 10 mcg IV ASDIRECTED 06/23/18 11:14 SCREEN [BBK] Routine RH IMMUNE GLOBULIN [BBK] Routine RHIG WORKUP, [BBK] Routine 06/23/18 21:00 Docusate Sodium [Colace] 100 mg PO BID 06/23/18 Dinner Regular Diet [DIET] 06/24/18 09:00 Pantoprazole [ProTONIX] 40 mg PO DAILY - Assessment Assessment:: Patient was seen and examined by me and I agree with above. Oral pain medication today, continue ambulation. Anticipate home in am.
[2018-06-24] MEDS: Docusate Sodium 100 MG Cap PO SCH ×2 (08:20→20:59)
[2018-06-24] MEDS: Pantoprazole 40 MG Tab.CR PO SCH (09:04)
[2018-06-24] MEDS: Ibuprofen 800 MG Tab PO PRN (15:09)
[2018-06-24] MEDS: Acetaminophen/oxyCODONE 325-5 MG Tab PO PRN (19:37)
[2018-06-25] MEDS: Ibuprofen 800 MG Tab PO PRN (01:03)
[2018-06-25] MEDS: Acetaminophen/oxyCODONE 325-5 MG Tab PO PRN (07:56)
--- NOTE | 2018-06-25 08:29 | PCM.PNPP ---
- General Info Date of Service: 06/25/18 Functional Status: Reports: Pain Controlled, Tolerating Diet, Ambulating, Urinating - Review of Systems General: Reports: No Symptoms HEENT: Reports: No Symptoms Pulmonary: Reports: No Symptoms Cardiovascular: Reports: No Symptoms Gastrointestinal: Reports: No Symptoms Genitourinary: Reports: No Symptoms Musculoskeletal: Reports: No Symptoms Skin: Reports: No Symptoms Neurological: Reports: No Symptoms Psychiatric: Reports: No Symptoms - Patient Data Vital Signs - Most Recent: Last Vital Signs Temp 36.6 C 06/25/18 04:07 Pulse 82 06/25/18 04:07 Resp 18 06/25/18 04:07 BP 119/69 06/25/18 04:07 Pulse Ox 96 06/25/18 04:07 Weight - Most Recent: 88.904 kg Lab Results - Last 24 Hours: Laboratory Results - last 24 hr 06/23/18 Range/Units 11:14 Screen NEGATIVE (NEGATIVE) RhIG Candidate? YES Rhogam Indicated YES, BABY RH POS H Med Orders - Current: Current Medications Bisacodyl (Dulcolax) 10 mg RECTAL ONETIME PRN PRN Reason: Constipation Diphenhydramine HCl (Benadryl) 25 mg IVPUSH Q6H PRN PRN Reason: Itching or Nausea Docusate Sodium (Colace) 100 mg PO BID [facility] Last Admin: 06/24/18 20:59 Dose: 100 mg Emollient Ointment (Lansinoh Hpa) 0 gm TOP ASDIRECTED PRN PRN Reason: Sore Nipples Fentanyl Citrate (Fentanyl In Ns 300 Mcg/30 Ml Environmental Services Assistant) 10 mcg IV ASDIRECTED [facility]; Protocol Last Admin: 06/24/18 00:40 Dose: 10 mcg Tranexamic Acid 1,000 mg/ (Sodium Chloride) 110 mls @ 660 mls/hr IV ONETIME PRN PRN Reason: Bleeding Lactated Ringer's (Ringers, Lactated) 1,000 mls @ 125 mls/hr IV ASDIRECTED [facility] Ibuprofen (Motrin) 800 mg PO Q8H PRN PRN Reason: mild pain or fever Last Admin: 06/25/18 01:03 Dose: 800 mg Ondansetron HCl (Zofran) 4 mg IV Q4H PRN PRN Reason: Nausea/Vomiting Oxycodone/Acetaminophen (Percocet 325-5 Mg) 1 tab PO Q4H PRN PRN Reason: Pain (moderate 4-6) Last Admin: 06/24/18 08:20 Dose: 1 tab Oxycodone/Acetaminophen (Percocet 325-5 Mg) 2 tab PO Q4H PRN PRN Reason: Pain (moderate 4-6) Last Admin: 06/25/18 07:56 Dose: 2 tab Pantoprazole Sodium (Protonix) 40 mg PO DAILY [facility] Last Admin: 06/24/18 09:04 Dose: 40 mg Discontinued Medications Cefazolin Sodium/Dextrose (Ancef) Confirm Administered Dose 2 gm IV .STK-MED ONE Stop: 06/23/18 08:20 Citric Acid/Sodium Citrate (Bicitra Solution) 30 ml PO ONETIME ONE Stop: 06/23/18 05:09 Last Admin: 06/23/18 07:57 Dose: 30 ml Citric Acid/Sodium Citrate (Bicitra Solution) Confirm Administered Dose 30 ml .ROUTE .STK-MED ONE Stop: 06/23/18 07:53 Last Admin: 06/23/18 13:24 Dose: Not Given Ephedrine Sulfate (Ephedrine Sulfate) Confirm Administered Dose 50 mg .ROUTE .STK-MED ONE Stop: 06/23/18 08:19 Lactated Ringer's (Ringers, Lactated) 1,000 mls @ 500 mls/hr IV BOLUS [facility] Last Admin: 06/23/18 07:21 Dose: 500 mls/hr Oxytocin/Sodium Chloride (Oxytocin 30 Unit/500 Ml-Ns) 30 unit in 500 mls @ 250 mls/hr IV TITRATE [facility] Cefazolin Sodium/Dextrose 2 gm (/ Premix) 50 mls @ 100 mls/hr IV ONETIME ONE Stop: 06/23/18 05:40 Last Admin: 06/23/18 13:24 Dose: Not Given Sodium Chloride (Normal Saline) Confirm Administered Dose 20 mls @ as directed .ROUTE .STK-MED ONE Stop: 06/23/18 08:19 Ketorolac Tromethamine (Toradol) 30 mg IVPUSH Q6H [facility] Stop: 06/24/18 09:16 Last Admin: 06/24/18 09:04 Dose: 30 mg Methylergonovine Maleate (Methergine) Confirm Administered Dose 0.2 mg .ROUTE .STK-MED ONE Stop: 06/23/18 08:43 Midazolam HCl (Versed 1 Mg/Ml) Confirm Administered Dose 2 mg .ROUTE .STK-MED ONE Stop: 06/23/18 08:20 Octyl Cyanoacrylate (Dermabond Advance) Confirm Administered Dose 1 applic .ROUTE .STK-MED ONE Stop: 06/23/18 07:26 Ondansetron HCl (Zofran) Confirm Administered Dose 4 mg .ROUTE .STK-MED ONE Stop: 06/23/18 08:19 Oxytocin (Pitocin) Confirm Administered Dose 20 unit .ROUTE .STK-MED ONE Stop: 06/23/18 08:19 Sodium Chloride (Saline Flush) 10 ml FLUSH ASDIRECTED PRN PRN Reason: Keep Vein Open Sodium Chloride (Saline Flush) 2.5 ml FLUSH ASDIRECTED PRN PRN Reason: Keep Vein Open - Infant Interaction Disposition, : [place] in Room with Family Infant Feeding: Bottle Fed Support Person: - Recovery Exam Fundal Tone: Firm Fundal Level: 1 Fingerbreadths Below Umbilicus Fundal Placement: Midline Lochia Amount: Scant Lochia Color: Rubra/Red Perineum Description: Intact, Minimal Bruising/Swelling Episiotomy/Laceration: None Bladder Status: Nonpalpable, Voiding Urinary Elimination: Indwelling Catheter - Exam General: Alert, Oriented Neck: Supple Lungs: Clear to Auscultation, Normal Respiratory Effort Cardiovascular: Regular Rate GI/Abdominal Exam: Normal Bowel Sounds, Soft, Non-Tender, No Distention Extremities: Normal Inspection, Non-Tender. No: No Pedal Edema (1+ BILATERAL) Skin: Warm Wound/Incisions: Healing Well Psy/Mental Status: Alert, Normal Affect, Normal Mood - Problem List & Annotations (1) delivery delivered SNOMED Code(s): 705923413 Code(s): O82 - ENCOUNTER FOR DELIVERY WITHOUT INDICATION Status: Acute Current Visit: Yes - Problem List Review Problem List Initiated/Reviewed/Updated: Yes - My Orders Last 24 Hours: My Active Orders 06/24/18 09:00 Pantoprazole [ProTONIX] 40 mg PO DAILY - Assessment Assessment:: POD#2 after repeat , stable minimal lochia, pain well controlled would like to be discharged. Received rhogam yesterday. Fasting glucose is 80, check 2 hour GTT at 6 weeks - Plan Plan:: Dismiss to home today,, discharge instructions reviewed.
[2018-06-25 08:37] VITALS: BP 116/64
[2018-06-25] MEDS: Docusate Sodium 100 MG Cap PO SCH (09:41)
[2018-06-25] MEDS: Pantoprazole 40 MG Tab.CR PO SCH (09:41)
== END 2018-06-25 11:15 | disposition home or self-care (01) | DRG 766 ==
LOC: MW.OB 05:02
PROVIDERS: ADMIT Obstetrics & Gynecology; ATTEND Obstetrics & Gynecology
PROC: 10D00Z1 Extraction of Products of Conception, Low, Open Approach (ICD-10-PCS; principal; 2018-06-23)
PROC: 0UT70ZZ Resection of Bilateral Fallopian Tubes, Open Approach (ICD-10-PCS; 2018-06-23)
PROC: 3E0234Z Introduction of Serum, Toxoid and Vaccine into Muscle, Percutaneous Approach (ICD-10-PCS; 2018-06-24)
DX: O34.211 Maternal care for low transverse scar from previous cesarean delivery (principal); Z3A.38 38 weeks gestation of pregnancy; Z37.0 Single live birth; O24.424 Gestational diabetes mellitus in childbirth, insulin controlled; Z30.2 Encounter for sterilization; O99.02 Anemia complicating childbirth; D64.9 Anemia, unspecified; Z98.890 Other specified postprocedural states; Z29.13 Encounter for prophylactic Rho(D) immune globulin
CPT/HCPCS: 36415; 59025; 82803; 82962; 85014; 85018; 85027; 85460; 86850; 86900; 86901; A9270-GY; J0690; J1885; J2210; J2250; J2405; J2590; J2792; J3010; J7120

== ENCOUNTER 2020-07-31 06:10 | Emergency (ER) | payer BC, OTHER ==
[2020-07-31] MEDS ORDERED: Sodium Chloride 0.9% 1,000 ML IV ONE (06:34)
[2020-07-31] MEDS ORDERED: Ondansetron 4 MG/2 ML SDV IVPUSH ONE (06:34)
[2020-07-31] MEDS ORDERED: Sodium Chloride 0.9% 2.5 ML Syringe FLUSH PRN (06:34)
[2020-07-31] MEDS ORDERED: HYDROmorphone 1 MG/ML Syringe IVPUSH ONE (06:34)
[2020-07-31] MEDS ORDERED: Sodium Chloride 0.9% 10 ML Syringe FLUSH PRN (06:34)
--- NOTE | 2020-07-31 06:44 | EDM.PDOC ---
<ChalinoJewel dang - Last Filed: 07/31/20 06:36> ED HPI GENERAL MEDICAL PROBLEM - General Chief Complaint: Abdominal Pain Stated Complaint: STOMACH PAIN Time Seen by Provider: 07/31/20 06:40 - History of Present Illness INITIAL COMMENTS - FREE TEXT/NARRATIVE: HISTORY AND PHYSICAL: History of present illness: This is a 29-year-old female with a history significant for ameloblastoma/ameloblastic carcinoma of the mouth who presents ER today complaining of severe pain in her right lower quadrant that started at 2 PM yesterday afternoon. Patient reports that the pain did not start in the midepigastric region but has been persistently in the right lower quadrant/right suprapubic region since 2 PM and is progressively getting worse. Patient reports that her last p.o. intake was yesterday at 6 PM. She reports she ate a cheeseburger at that time. Patient denies any recent fevers, shakes, chills, melena, or bright blood per rectum. Patient denies any dysuria, frequency, urgency, hematuria. Patient has any chest pain or shortness of breath. Although the patient has felt nauseous she denies any vomiting or diarrhea. Patient denies any vaginal discharge. Patient reports her last menstrual period was approximately 2 weeks ago. Patient reports the pain increases with ambulation or coughing. Patient denies any vaginal discharge or vaginal bleeding Patient denies any history of hypertension, diabetes, liver, lung, kidney problems. Patient has had C-sections x3, status post cholecystectomy, Patient has a history of PCOS. Patient denies any tobacco alcohol or drugs. Patient reports she has no known drug allergies. She reports that sometimes she does have itching when she receives morphine after surgery. Review of systems: As per history of present illness and below otherwise all systems reviewed and negative. MDM: Nurses notes reviewed and agree with PFSH, ROS, V/S. Any exceptions to agreement documented on physician record. Other than the symptoms associated with the present events, the following is reported with regard to recent health: General: (-) fever. HENT: (-) congestion. Respiratory: (-) cough. Cardiovascular:(-) chest pain. GI: (+) abdominal pain : (-) urinary complaints. Musculoskeletal: (-) other aches or pains. Endocrine: (-) generalized weakness. Neurological: (-) localized weakness. Psychiatric: (-)emotional stress Past medical history: As per history of present illness and as reviewed below otherwise noncontributory. Surgical history: As per history of present illness and as reviewed below otherwise noncontributory. Social history: No reported history of drug or alcohol abuse. Family history: As per history of present illness and as reviewed below otherwise noncontributory. Physical exam: Constitutional: Patient is oriented to person, place, and time. Appears well- developed and well-nourished. No distress. HEENT: Moist mucous membranes Head: Normocephalic and atraumatic Eyes: Right eye exhibits no discharge. Left eye exhibits no discharge. No scleral icterus Neck: Normal range of motion. No tracheal deviation present. Cardiovascular: Normal rate and regular rhythm. Pulmonary: Effort normal, no respiratory distress. Abd: Soft, nondistended, no rebound/guarding, no psoas or obturator signs, no Miles's sign. Pt does not present with an exam that would be consistent with an acute surgical abdomen at this time. Patient does have tenderness in her right lower quadrant in the area of McBurney's point. Musculoskeletal: Normal range of motion Neurologic: Alert and oriented to person, place and time. Skin: [place], warm and dry. Psychiatric: Normal mood and affect. Behavior is normal. Judgment and thought content normal. Nursing note and vital signs have been reviewed Diagnostics: CBC, CMP, urinalysis, urine test CT of the abdomen pelvis with IV contrast Therapeutics: NSS x1 L Zofran 4 mg IV Dilaudid 0.5 mg IV Assessment and plan: This is a 29-year-old female with a history significant for ameloblastoma/metaplastic carcinoma of the mouth who presents ER today with worsening pain to her right lower quadrant since 2 PM yesterday afternoon. Patient reports currently has diminished appetite but her last p.o. intake was 6 PM yesterday where she ate half a cheeseburger. Patient reports that she does have pain and discomfort when she walks and the pain radiates to her right lower quadrant. Patient reports initially she thought that the pain was an ovarian cyst as she does have a history of polycystic ovary syndrome however she reports that the pain persisted and is worse than what she is usually experienced. Patient denies any fevers. Patient reports her last menstrual period was 2 weeks ago. Concern for possible appendicitis versus ovarian torsion versus ectopic pre gnancy versus ovarian cyst versus intestinal pathology versus other intra- abdominal pathology. Patient will get CBC, CMP, urinalysis, urine test. Patient will have a CT scan of her abdomen pelvis with IV contrast to assess her internal organs. Patient has been given IV fluids as well as Zofran and Dilaudid to assist her with her pain and discomfort. 7 AM: Care signed out to Dr. Blake Definitive disposition and diagnosis as appropriate pending reevaluation and review of above. Right Lower Abdomen Pain Score (Numeric/FACES): 8 - Related Data Allergies Allergy/AdvReac Type Severity Reaction Status Date / Time No Known Allergies Allergy Verified 07/31/20 06:29 Home Meds: Home Meds Doxycycline [Vibra-Tabs] 100 mg PO Q12HR 14 Days #28 tab 07/31/20 [Rx] Phentermine HCl 0 mg PO DAILY 07/31/20 [History] oxyCODONE HCl/Acetaminophen [Percocet 5-325 mg Tablet] 1 each PO Q4H PRN 3 Days #18 tablet 07/31/20 [Rx] Past Medical History HEENT History: Reports: Other (See Below) Other HEENT History: wears glasses/contacts Cardiovascular History: Reports: None Respiratory History: Reports: None Gastrointestinal History: Reports: GERD Genitourinary History: Reports: None PASTER OPERATOR History: Reports: Ectopic , Polycystic Ovaries, , Other (See Below) Other PASTER OPERATOR History: ovarian cysts Musculoskeletal History: Reports: None Neurological History: Reports: None Psychiatric History: Reports: Anxiety Endocrine/Metabolic History: Reports: Diabetes, Gestational, Obesity/BMI 30+ Hematologic History: Reports: None Immunologic History: Reports: None Oncologic (Cancer) History: Reports: None Dermatologic History: Reports: None - Infectious Disease History Infectious Disease History: Reports: Chicken Pox - Past Surgical History HEENT Surgical History: Reports: Naso-Sinus Surgery, Oral Surgery, Other (See Below) Other HEENT Surgeries/Procedures: oral surgery x4 for excision of tumor and skin grafts, sinus surgery x1 Cardiovascular Surgical History: Reports: None Respiratory Surgical History: Reports: None GI Surgical History: Reports: Cholecystectomy Female Surgical History: Reports: Section, Other (See Below) Other Female Surgeries/Procedures: x2 Endocrine Surgical History: Reports: None Neurological Surgical History: Reports: None Musculoskeletal Surgical History: Reports: None Dermatological Surgical History: Reports: Skin Graft Social & Family History - Family History Family Medical History: Noncontributory - Tobacco Use Tobacco Use Status *Q: Never Tobacco User Second Hand Smoke Exposure: No - Caffeine Use Caffeine Use: Reports: Coffee - Recreational Drug Use Recreational Drug Use: No ED ROS GENERAL - Review of Systems Review Of Systems: See Below ED EXAM, GENERAL - Physical Exam Exam: See Below Departure - Departure Disposition: Home, Self-Care 01 Clinical Impression: Pelvic inflammatory disease (PID) - Discharge Information Prescriptions: oxyCODONE HCl/Acetaminophen [Percocet 5-325 mg Tablet] 1 each PO Q4H PRN 3 Days #18 tablet PRN Reason: Pain Doxycycline [Vibra-Tabs] 100 mg PO Q12HR 14 Days #28 tab Instructions: Pelvic Inflammatory Disease, [id number] Referrals: Clarice Anguiano MD [Primary Care Provider] - Forms: ED Department Discharge Additional Instructions: Your CT imaging is remarkable for changes consistent with pelvic inflammatory disease. Pelvic inflammatory disease is a bacterial infection of the female reproductive tract. This can be caused by sexually transmitted diseases, but is often caused by other bacteria as well. You were given a one-time's dose of an IV antibiotic called Rocephin in the emergency department. You were also prescribed an antibiotic called doxycycline that you will take twice a day for the next 2 weeks. You should follow-up with your PASTER OPERATOR in the next 1 to 3 days for reassessment. If symptoms are not improving, if you develop worsening pain, if you develop vomiting and are unable to keep down your medication, or if you develop fevers, you should return to the emergency department. The following information is given to patients seen in the emergency department who are being discharged to home. This information is to outline your options for follow-up care. We provide all patients seen in our emergency department with a follow-up referral. The need for follow-up, as well as the timing and circumstances, are variable depending upon the specifics of your emergency department visit. If you don't have a primary care physician on staff, we will provide you with a referral. We always advise you to contact your personal physician following an emergency department visit to inform them of the circumstance of the visit and for follow-up with them and/or the need for any referrals to a consulting specialist. The emergency department will also refer you to a specialist when appropriate. This referral assures that you have the opportunity for follow-up care with a specialist. All of these measure are taken in an effort to provide you with optimal care, which includes your follow-up. Under all circumstances we always encourage you to contact your private physician who remains a resource for coordinating your care. When calling for follow-up care, please make the office aware that this follow-up is from your recent emergency room visit. If for any reason you are refused follow-up, please contact the [facility] Emergency Department at and asked to speak to the emergency department charge nurse. Please follow up with your primary care physician. If you do not have a primary care physician, see below: [facility] [address] [place] [id number] [facility] [address] [place] [id number] Sepsis Event Note (ED) - Evaluation Sepsis Screening Result: No Definite Risk <Timoteo Blake - Last Filed: 07/31/20 08:29> ED HPI GENERAL MEDICAL PROBLEM - General Source of Information: Reports: Patient History Limitations: Reports: No Limitations Course - Vital Signs Last Recorded V/S: Last Vital Signs Temp 98.9 F 07/31/20 06:18 Pulse 102 H 07/31/20 06:18 Resp 18 07/31/20 06:18 BP 156/102 H 07/31/20 06:18 Pulse Ox 100 07/31/20 06:18 - Orders/Labs/Meds Orders: Active Orders 24 hr Category Date Time Status CHLAMYDIA AND GONORRHEA BY TMA Stat Lab 07/31/20 06:15 Received Sodium Chloride 0.9% [Saline Flush] Med 07/31/20 06:34 Active 10 ml FLUSH ASDIRECTED PRN Sodium Chloride 0.9% [Saline Flush] Med 07/31/20 06:34 Active 2.5 ml FLUSH ASDIRECTED PRN cefTRIAXone [Rocephin in Dextrose,Iso-Osm 1 GM/50 ML] 1 Med 07/31/20 08:22 Ordered gm Premix Bag 1 bag IV ONETIME Saline Lock Insert [OM.PC] Stat Oth 07/31/20 06:34 Ordered Medication Orders Sodium Chloride (Saline Flush) 10 ml FLUSH ASDIRECTED PRN PRN Reason: Keep Vein Open Last Admin: 07/31/20 08:20 Dose: 10 ml Documented by: LILLIAN Sodium Chloride (Saline Flush) 2.5 ml FLUSH ASDIRECTED PRN PRN Reason: Keep Vein Open Last Admin: 07/31/20 08:19 Dose: 2.5 ml Documented by: LILLIAN Labs: Laboratory Tests 07/31/20 07/31/20 07/31/20 Range/Units 06:15 06:15 06:20 WBC 10.84 (4.0-11.0) K/uL RBC 4.86 (4.30-5.90) M/uL Hgb 12.1 (12.0-16.0) g/dL Hct 38.8 (36.0-46.0) % MCV 79.8 L (80.0-98.0) fL MCH 24.9 L (27.0-32.0) pg MCHC 31.2 (31.0-37.0) g/dL RDW Std Deviation 39.9 (28.0-62.0) fl RDW Coeff of Trinity 14 (11.0-15.0) % Plt Count 289 (150-400) K/uL MPV 9.60 (7.40-12.00) fL Neut % (Auto) 80.8 H (48.0-80.0) % Lymph % (Auto) 12.4 L (16.0-40.0) % [place] % (Auto) 6.1 (0.0-15.0) % Eos % (Auto) 0.6 (0.0-7.0) % Baso % (Auto) 0.1 (0.0-1.5) % Neut # (Auto) 8.8 H (1.4-5.7) K/uL Lymph # (Auto) 1.3 (0.6-2.4) K/uL [place] # (Auto) 0.7 (0.0-0.8) K/uL Eos # (Auto) 0.1 (0.0-0.7) K/uL Baso # (Auto) 0.0 (0.0-0.1) K/uL Nucleated RBC % 0.0 /100WBC Nucleated RBCs # 0 K/uL Sodium (136-145) mmol/L Potassium (3.5-5.1) mmol/L Chloride (98-107) mmol/L Carbon Dioxide (21.0-32.0) mmol/L BUN (7.0-18.0) mg/dL Creatinine (0.6-1.0) mg/dL Est Cr Clr Drug Dosing mL/min Estimated GFR (MDRD) ml/min Glucose (74-106) mg/dL Calcium (8.5-10.1) mg/dL Total Bilirubin (0.2-1.0) mg/dL AST (15-37) IU/L ALT (14-63) IU/L Alkaline Phosphatase (46-116) U/L Total Protein (6.4-8.2) g/dL Albumin (3.4-5.0) g/dL Globulin (2.6-4.0) g/dL Albumin/Globulin Ratio (0.9-1.6) Lipase (73-393) U/L Urine Color YELLOW Urine Appearance CLEAR Urine pH 6.0 (5.0-8.0) Ur Specific [place] >= 1.030 (1.001-1.035) Urine Protein NEGATIVE (NEGATIVE) mg/dL Urine Glucose (UA) NEGATIVE (NEGATIVE) mg/dL Urine Ketones NEGATIVE (NEGATIVE) mg/dL Urine Occult Blood NEGATIVE (NEGATIVE) Urine Nitrite NEGATIVE (NEGATIVE) Urine Bilirubin NEGATIVE (NEGATIVE) Urine Urobilinogen 0.2 (<2.0) EU/dL Ur Leukocyte Esterase TRACE H (NEGATIVE) Urine RBC 0-1 (0-2/HPF) Urine WBC 2-3 (0-5/HPF) Ur Epithelial Cells MODERATE (NONE-FEW) Urine Bacteria 2+ H (NEGATIVE) Urine HCG, Qual NEGATIVE (NEGATIVE) 07/31/20 Range/Units 06:20 WBC (4.0-11.0) K/uL RBC (4.30-5.90) M/uL Hgb (12.0-16.0) g/dL Hct (36.0-46.0) % MCV (80.0-98.0) fL MCH (27.0-32.0) pg MCHC (31.0-37.0) g/dL RDW Std Deviation (28.0-62.0) fl RDW Coeff of Trinity (11.0-15.0) % Plt Count (150-400) K/uL MPV (7.40-12.00) fL Neut % (Auto) (48.0-80.0) % Lymph % (Auto) (16.0-40.0) % [place] % (Auto) (0.0-15.0) % Eos % (Auto) (0.0-7.0) % Baso % (Auto) (0.0-1.5) % Neut # (Auto) (1.4-5.7) K/uL Lymph # (Auto) (0.6-2.4) K/uL [place] # (Auto) (0.0-0.8) K/uL Eos # (Auto) (0.0-0.7) K/uL Baso # (Auto) (0.0-0.1) K/uL Nucleated RBC % /100WBC Nucleated RBCs # K/uL Sodium 136 (136-145) mmol/L Potassium 3.7 (3.5-5.1) mmol/L Chloride 101 (98-107) mmol/L Carbon Dioxide 26.0 (21.0-32.0) mmol/L BUN 9 (7.0-18.0) mg/dL Creatinine 0.9 (0.6-1.0) mg/dL Est Cr Clr Drug Dosing 65.05 mL/min Estimated GFR (MDRD) > 60.0 ml/min Glucose 116 H (74-106) mg/dL Calcium 9.1 (8.5-10.1) mg/dL Total Bilirubin 0.5 (0.2-1.0) mg/dL AST 16 (15-37) IU/L ALT 26 (14-63) IU/L Alkaline Phosphatase 90 (46-116) U/L Total Protein 8.4 H (6.4-8.2) g/dL Albumin 4.3 (3.4-5.0) g/dL Globulin 4.1 H (2.6-4.0) g/dL Albumin/Globulin Ratio 1.1 (0.9-1.6) Lipase 132 (73-393) U/L Urine Color Urine Appearance Urine pH (5.0-8.0) Ur Specific [place] (1.001-1.035) Urine Protein (NEGATIVE) mg/dL Urine Glucose (UA) (NEGATIVE) mg/dL Urine Ketones (NEGATIVE) mg/dL Urine Occult Blood (NEGATIVE) Urine Nitrite (NEGATIVE) Urine Bilirubin (NEGATIVE) Urine Urobilinogen (<2.0) EU/dL Ur Leukocyte Esterase (NEGATIVE) Urine RBC (0-2/HPF) Urine WBC (0-5/HPF) Ur Epithelial Cells (NONE-FEW) Urine Bacteria (NEGATIVE) Urine HCG, Qual (NEGATIVE) Meds: Medications Generic Name Dose Route Start Last Admin Trade Name Freq PRN Reason Stop Dose Admin Sodium Chloride 10 ml 07/31/20 06:34 07/31/20 08:20 Saline Flush FLUSH 10 ml ASDIRECTED PRN Administration Keep Vein Open Sodium Chloride 2.5 ml 07/31/20 06:34 07/31/20 08:19 Saline Flush FLUSH 2.5 ml ASDIRECTED PRN Administration Keep Vein Open Discontinued Medications Generic Name Dose Route Start Last Admin Trade Name Freq PRN Reason Stop Dose Admin Hydromorphone HCl 0.5 mg 07/31/20 06:34 07/31/20 06:47 Dilaudid IVPUSH 07/31/20 06:35 0.5 mg ONETIME ONE Administration Hydromorphone HCl 0.5 mg 07/31/20 07:26 07/31/20 08:19 Dilaudid IVPUSH 07/31/20 07:27 0.5 mg ONETIME ONE Administration Sodium Chloride 1,000 mls @ 999 mls/hr 07/31/20 06:34 07/31/20 06:44 Normal Saline IV 07/31/20 07:34 999 mls/hr .Bolus ONE Administration Iopamidol 100 ml 07/31/20 07:40 07/31/20 07:40 Isovue-370 (76%) IVPUSH 07/31/20 07:41 100 ml ONETIME ONE Administration Ondansetron HCl 4 mg 07/31/20 06:34 07/31/20 06:45 Zofran IVPUSH 07/31/20 06:35 4 mg ONETIME ONE Administration - Re-Assessments/Exams Free Text/Narrative Re-Assessment/Exam: 07/31/20 06:59 Patient care transitioned from night-team ED physician pending CT imaging results, labs, and reassessment. 07/31/20 08:23 CT imaging is remarkable for an normal-appearing appendix, left ovarian cyst, otherwise normal-appearing ovaries bilaterally. There are inflammatory changes in the right lower pelvis suggestive of pelvic inflammatory disease. Gonorrhea chlamydia testing added. Will treat for PID, and recommend follow-up within the next 2 or 3 days. Patient does note that she has an PASTER OPERATOR that she follows up with, and will be able to see her within the next few days. We will give Rocephin 1 g in the emergency department, and discharged on doxycycline. Return precautions were discussed including worsening pain, development of fever, or inability to tolerate p.o. Patient understands and agrees with plan. Departure - Departure Time of Disposition: 08:25 Condition: Good Sepsis Event Note (ED) - Focused Exam Vital Signs: Vital Signs Temp Pulse Resp BP Pulse Ox 07/31/20 06:18 98.9 F 102 H 18 156/102 H 100 - My Orders Last 24 Hours: My Active Orders 07/31/20 06:15 CHLAMYDIA AND GONORRHEA BY TMA Stat 07/31/20 08:22 cefTRIAXone [Rocephin in Dextrose,Iso-Osm 1 GM/50 ML] 1 gm Premix Bag 1 bag IV ONETIME - Assessment/Plan Last 24 Hours: My Active Orders 07/31/20 06:15 CHLAMYDIA AND GONORRHEA BY TMA Stat 07/31/20 08:22 cefTRIAXone [Rocephin in Dextrose,Iso-Osm 1 GM/50 ML] 1 gm Premix Bag 1 bag IV ONETIME
[2020-07-31 06:58] LABS: BLOOD UREA NITROGEN,BUN 9 mg/dL (7.0-18.0); CHLORIDE,CL 101 mmol/L (98-107); GLUCOSE RANDOM 116 mg/dL (74-106); LIPASE 132 U/L (73-393); POTASSIUM,K 3.7 mmol/L (3.5-5.1); SODIUM,NA 136 mmol/L (136-145)
[2020-07-31] MEDS ORDERED: HYDROmorphone 2 MG/ML Syringe IVPUSH ONE (07:26)
[2020-07-31] MEDS ORDERED: Iopamidol 755 Mg/ML 100 ML Bottle IVPUSH ONE (07:40)
--- NOTE | 2020-07-31 08:14 | CT ---
Indication: Pt w/RLQ pain. Technique: Postcontrast CT abdomen and pelvis. 100 cc Isovue 370 administered intravenously Please note that all CT scans at this facility use dose modulation, iterative reconstruction, and/or weight-based dosing when appropriate to reduce radiation dose to as low as reasonably achievable. Comparison: No comparisons Findings: Lung bases are clear. No pleural effusion or infiltrate. Liver is normal. Status post cholecystectomy. No biliary obstruction. Normal pancreas and spleen. Normal kidneys and adrenal glands. Normal appendix. No bowel obstruction or free air. Mild inflammatory changes are present within the anterior pelvic fat, right greater than left. No abscess. The ovaries appear normal for age with incidental cyst in the left ovary measuring 1.5 centimeters. Cervical nabothian cyst is present measuring 1.3 centimeters. No uterine leiomyoma. Bladder normal. No diverticulitis. Osseous structures normal for age. No hernia defect. Impression: Normal CT of the appendix. Mild inflammatory changes within the lower anterior pelvic fat, right greater than left without abscess. Consider pelvic inflammatory disease in the appropriate clinical setting. Incidental left ovarian cyst and cervical nabothian cyst. Status post cholecystectomy without biliary obstruction. Please note that all CT scans at this facility use dose modulation, iterative reconstruction, and/or weight-based dosing when appropriate to reduce radiation dose to as low as reasonably achievable. Dictated by Gonzalo Martin MD @ Jul 31 2020 8:05AM Signed by Dr. Gonzalo Martin @ Jul 31 2020 8:12AM
[2020-07-31] MEDS ORDERED: cefTRIAXone 1 GM in Premix Bag 1 BAG IV ONE (08:22)
[2020-07-31 09:21] VITALS: BP 140/95; PULSE 90
[2020-08-02 16:02] LABS: C.TRACHOMATIS BY TMA Negative (Negative); N.GONORRHOEAE BY TMA Negative (Negative)
== END 2020-07-31 08:56 | disposition home or self-care (01) ==
LOC: MW.ED 06:10
DX: N73.9 Female pelvic inflammatory disease, unspecified (principal); E66.9 Obesity, unspecified; Z90.49 Acquired absence of other specified parts of digestive tract; Z68.30 Body mass index [BMI] 30.0-30.9, adult
CPT/HCPCS: 36415; 74177; 80053; 81001; 81025; 83690; 85025; 87491; 87591; 96365; 96375; 96376; 99284; J0696; J1170; J2405; J7030; Q9967

== ENCOUNTER 2021-08-18 10:17 | Emergency (ER) | payer BC ==
[2021-08-18] MEDS ORDERED: Sodium Chloride 0.9% 10 ML Syringe FLUSH PRN (10:18)
[2021-08-18] MEDS ORDERED: Sodium Chloride 0.9% 2.5 ML Syringe FLUSH PRN (10:18)
--- NOTE | 2021-08-18 11:29 | CR ---
Indication: Shortness of breath, history of hussein virus Comparison: None available. Technique: Single AP view chest Findings: There is hyperinflation and mild central bronchial thickening. There is no focal consolidation, effusion, or pneumothorax. The cardiomediastinal silhouette is within normal limits. The bony thorax is grossly intact. Impression: Mild central bronchial thickening without dense consolidation or ground-glass opacity at this time. Dictated by Sunday Schmitt MD @ 08/18/2021 11:28:03 AM (Electronically Signed)
[2021-08-18] MEDS ORDERED: Ketorolac 15 MG/ML SDV IM ONE (11:31)
[2021-08-18 12:34] LABS: CORONAVIRUS COVID-19 NAA POSITIVE (NEGATIVE); INFLUENZA A NAA NEGATIVE (NEGATIVE); INFLUENZA B NAA NEGATIVE (NEGATIVE)
[2021-08-18 12:35] LABS: BLOOD UREA NITROGEN,BUN 9 mg/dL (7.0-18.0); CARBON DIOXIDE,CO2 25.8 mmol/L (21.0-32.0); CHLORIDE,CL 103 mmol/L (98-107); GLUCOSE RANDOM 105 mg/dL (74-106); POTASSIUM,K 3.5 mmol/L (3.5-5.1); SODIUM,NA 140 mmol/L (136-145)
--- NOTE | 2021-08-18 13:52 | CT ---
INDICATION: Hypoxia COMPARISON: A radiograph from earlier the same day TECHNIQUE: : CT examination of the chest was performed with the uneventful intravenous administration of 100 cc of Isovue 3 7 while thin axial sections were obtained from above the apices of the lungs to the lung bases. Please note that all CT scans at this facility use dose modulation, iterative reconstruction, and/or weight-based dosing when appropriate to reduce radiation dose to as low as reasonably achievable. FINDINGS: : HEART and MEDIASTINUM: The heart size is normal. There is no mediastinal or hilar adenopathy or mass. There is no pericardial effusion.Small hiatal hernia and thickening of the esophagus. This is probably chronic reflux associated change. Follow-up evaluation recommended in the nonacute care setting. PULMONARY ARTERIAL CIRCULATION: There is no visible intraluminal filling defect to suggest pulmonary embolus. LUNGS: Mild to moderate multifocal ground-glass primarily involving the bases peripherally though all lobes are involved. 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 There is also a smoothly marginated nodule in the left lower lobe measuring 9 millimeters. This is relatively low density and probably represents a hamartoma though follow-up is advised. PLEURAL SPACES: There is no pleural effusion, pneumothorax or pleural based mass. VISUALIZED UPPER ABDOMEN: Hepatic steatosis. Otherwise, the limited visualized upper abdominal structures appear normal. OSSEOUS STRUCTURES: Age-appropriate appearance. No acute fracture or destructive process. TUBES and LINES: None. IMPRESSION: 1. There is no indication of pulmonary embolus. 2. [id number] multifocal ground-glass opacification. 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 3. There is a 9 millimeter smoothly marginated nodule at the left lung base. Imaging features favor a benign hamartoma though further evaluation is recommended in the nonacute care setting. 4. Small hiatal hernia with circumferential esophageal wall thickening likely chronic reflux associated change. Appropriate follow-up advised. Please note that all CT scans at this facility use dose modulation, iterative reconstruction, and/or weight-based dosing when appropriate to reduce radiation dose to as low as reasonably achievable. Dictated by Yonis Lauren MD @ 08/18/2021 1:51:06 PM (Electronically Signed)
--- NOTE | 2021-08-18 14:21 | EDM.PDOC ---
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 She states that she has been experiencing fatigue, sore throat, cough which she states that has been getting worse. She states that she tested positive on August 13 but has not improved at all since that time. She denies any syncope, chest pain, lower extremity edema. She denies any fevers or chills. She states that she went to the clinic today because it is getting worse and she just "cannot do it anymore." REVIEW OF SYSTEMS: Constitutional: Positive for fatigue. Denies fever, chills. Eyes: Denies eye pain Ears, Nose, Mouth, & Throat: Denies earache, sore throat Cardiovascular: Denies chest pain Respiratory: Positive for nonproductive cough denies shortness of breath Gastrointestinal: Denies Nausea, vomiting, diarrhea, hematochezia. Genitourinary: Denies hematuria Skin:Denies a rash MSK: Denies joint pain Neurological: Denies blurred vision Psychiatric: Denies depression PAST MEDICAL HISTORY: As per history of present illness and as reviewed below otherwise noncontributory. SURGICAL HISTORY: As per history of present illness and as reviewed below otherwise noncontributory. SOCIAL HISTORY: As per history of present illness and as reviewed below otherwise noncontributory. FAMILY HISTORY: As per history of present illness and as reviewed below otherwise noncontributory. EXAMINATION OF ORGAN SYSTEMS/BODY AREAS: Constitutional: Blood pressure is 144/95, heart rate 97, respiratory rate 18 with an oxygen saturation of 99% on room air. Temperature 36.3 General: Well-appearing woman who is in no acute distress Psychiatric: Appropriate mood and affect. Eyes: No scleral icterus or conjunctival erythema ENMT: Moist mucous membranes. No pharyngeal erythema Cardiovascular: Regular, rate, and rhythm. No gallops, murmurs, or rubs. Bilateral upper extremity pulses symmetric and intact. No peripheral edema. No JVD. Respiratory: Lungs clear to auscultation bilaterally. No wheezes, rales, or rhonchi. Gastrointestinal: Soft, non-tender, non-distended. Normoactive bowel sounds Genitourinary: No suprapubic tenderness Musculoskeletal: Normal range of motion. Skin: No lesions or abrasions. Neurological: Alert, GCS 15 MEDICAL DECISION MAKING AND COURSE IN THE ED WITH INTERPRETATION/REVIEW OF DIAGNOSTIC STUDIES: This is a 30-year-old woman with a recent diagnosis of COVID-19 who comes to the emergency department with fatigue, sore throat and nonproductive cough whose vital signs are completely normal. It is uncertain as to what vital signs were seen in the clinic however given the concern will obtain a CT angiogram of the chest to evaluate for pulmonary embolism. We will get screening labs including CBC, CMP and repeat a Covid test as we do not have a Covid test in our system as the patient does meet inclusion criteria for Regeneron therapy. For her symptoms we will provide her with Toradol for pain relief and reevaluate after imaging and work-up. DDx: COVID, PE, Pneumonia Laboratory: CBC reveals a microcytic anemia with a hemoglobin of 10.4 and hematocrit of 34.4. Leukopenia with a WBC count of 2.29 otherwise unremarkable. CMP is unremarkable. Covid is positive influenza is negative The radiological images were viewed by myself along with reading the report from the radiologist. Chest x-ray not reveal any acute cardiopulmonary process other than some mild central bronchial thickening. CT angiogram of the chest does not reveal any evidence of pulmonary embolism.. There is mild multifocal groundglass opacities suggesting Covid. 9 mm smoothly marginated nodule at the left lung base and a small hiatal hernia. Patient already knows about the lung nodule. I did discuss the results with the patient. At this time the patient is a candidate for the moment he was amenable to this therefore I did fax this information over. I discussed strict return precautions. She was amenable to discharge and had no further questions DISPOSITION: The patient was discharged home in stable condition. The patient will follow up with pcp after isolation period CONDITION: Fair PROCEDURES: None FINAL IMPRESSION(S)/DIAGNOSES: 1. Acute COVID pneumonia Cole Verduzco M.D. generalized Pain Score (Numeric/FACES): 7 - Related Data Allergies Allergy/AdvReac Type Severity Reaction Status Date / Time No Known Allergies Allergy Verified 08/18/21 11:17 Home Meds: Home Meds Gabapentin [Neurontin] 08/18/21 [History] Metoprolol Succinate [Toprol XL] 08/18/21 [History] Pantoprazole [ProTONIX] 08/18/21 [History] Venlafaxine [Effexor] 08/18/21 [History] traZODone 08/18/21 [History] Past Medical History HEENT History: Reports: Other (See Below) Other HEENT History: wears glasses/contacts Cardiovascular History: Reports: None Respiratory History: Reports: None Gastrointestinal History: Reports: GERD Genitourinary History: Reports: None CALL CENTER NURSE History: Reports: Ectopic , Polycystic Ovaries, , Other (See Below) Other CALL CENTER NURSE History: ovarian cysts Musculoskeletal History: Reports: None Neurological History: Reports: None Psychiatric History: Reports: Anxiety Endocrine/Metabolic History: Reports: Diabetes, Gestational, Obesity/BMI 30+ Hematologic History: Reports: None Immunologic History: Reports: None Oncologic (Cancer) History: Reports: None Dermatologic History: Reports: None - Infectious Disease History Infectious Disease History: Reports: Chicken Pox, Novel Coronavirus - Past Surgical History Head Surgeries/Procedures: Reports: None HEENT Surgical History: Reports: Naso-Sinus Surgery, Oral Surgery, Other (See Below) Other HEENT Surgeries/Procedures: oral surgery x4 for excision of tumor and skin grafts, sinus surgery x1 Cardiovascular Surgical History: Reports: None Respiratory Surgical History: Reports: None GI Surgical History: Reports: Cholecystectomy Female Surgical History: Reports: Section, Other (See Below) Other Female Surgeries/Procedures: x2 Endocrine Surgical History: Reports: None Neurological Surgical History: Reports: None Musculoskeletal Surgical History: Reports: None Dermatological Surgical History: Reports: Skin Graft Social & Family History - Family History Family Medical History: No Pertinent Family History - Tobacco Use Tobacco Use Status *Q: Never Tobacco User - Caffeine Use Caffeine Use: Reports: Coffee - Recreational Drug Use Recreational Drug Use: No ED ROS GENERAL - Review of Systems Review Of Systems: See Below ED EXAM, GENERAL - Physical Exam Exam: See Below Course - Vital Signs Last Recorded V/S: Last Vital Signs Temp 36.4 C 08/18/21 14:29 Pulse 93 08/18/21 14:29 Resp 16 08/18/21 14:29 BP 141/95 H 08/18/21 14:29 Pulse Ox 97 08/18/21 14:29 - Orders/Labs/Meds Labs: Laboratory Tests 08/18/21 08/18/21 08/18/21 Range/Units 11:10 11:53 11:53 WBC 2.29 L (4.0-11.0) K/uL RBC 4.48 (4.30-5.90) M/uL Hgb 10.4 L (12.0-16.0) g/dL Hct 34.4 L (36.0-46.0) % MCV 76.8 L (80.0-98.0) fL MCH 23.2 L (27.0-32.0) pg MCHC 30.2 L (31.0-37.0) g/dL RDW Std Deviation 45.8 (28.0-62.0) fl RDW Coeff of Trinity 16 H (11.0-15.0) % Plt Count 173 (150-400) K/uL MPV 9.40 (7.40-12.00) fL Neut % (Auto) 49.3 (48.0-80.0) % Lymph % (Auto) 41.5 H (16.0-40.0) % [place] % (Auto) 7.9 (0.0-15.0) % Eos % (Auto) 0.9 (0.0-7.0) % Baso % (Auto) 0.4 (0.0-1.5) % Neut # (Auto) 1.1 L (1.4-5.7) K/uL Lymph # (Auto) 1.0 (0.6-2.4) K/uL [place] # (Auto) 0.2 (0.0-0.8) K/uL Eos # (Auto) 0.0 (0.0-0.7) K/uL Baso # (Auto) 0.0 (0.0-0.1) K/uL Nucleated RBC % 0.0 /100WBC Nucleated RBCs # 0 K/uL Sodium 140 (136-145) mmol/L Potassium 3.5 (3.5-5.1) mmol/L Chloride 103 (98-107) mmol/L Carbon Dioxide 25.8 (21.0-32.0) mmol/L BUN 9 (7.0-18.0) mg/dL Creatinine 0.8 (0.6-1.0) mg/dL Est Cr Clr Drug Dosing 72.52 mL/min Estimated GFR (MDRD) > 60.0 ml/min Glucose 105 (74-106) mg/dL Calcium 8.8 (8.5-10.1) mg/dL Total Bilirubin 0.2 (0.2-1.0) mg/dL AST 48 H (15-37) IU/L ALT 41 (14-63) IU/L Alkaline Phosphatase 85 (46-116) U/L Total Protein 8.0 (6.4-8.2) g/dL Albumin 3.6 (3.4-5.0) g/dL Globulin 4.4 H (2.6-4.0) g/dL Albumin/Globulin Ratio 0.8 L (0.9-1.6) Influenza Type A RNA NEGATIVE (NEGATIVE) Influenza Type B RNA NEGATIVE (NEGATIVE) SARS-CoV-2 RNA (RUDDY) POSITIVE H (NEGATIVE) Meds: Medications Discontinued Medications Generic Name Dose Route Start Last Admin Trade Name Freq PRN Reason Stop Dose Admin Iopamidol 100 ml 08/18/21 15:46 08/18/21 15:47 Iopamidol 755 Mg/Ml 500 Ml Multipack Bottle IVPUSH 08/18/21 15:47 100 ml ONETIME ONE Administration Ketorolac Tromethamine 15 mg 08/18/21 11:31 08/18/21 12:03 Ketorolac 15 Mg/Ml Sdv IM 08/18/21 11:32 15 mg ONETIME ONE Administration Sodium Chloride 10 ml 08/18/21 10:18 08/18/21 12:05 Sodium Chloride 0.9% 10 Ml Syringe FLUSH 10 ml ASDIRECTED PRN Administration Keep Vein Open Sodium Chloride 2.5 ml 08/18/21 10:18 08/18/21 12:05 Sodium Chloride 0.9% 2.5 Ml Syringe FLUSH 2.5 ml ASDIRECTED PRN Administration Keep Vein Open Departure - Departure Time of Disposition: 14:21 Disposition: Home, Self-Care 01 Condition: Fair Clinical Impression: COVID-19 - Discharge Information *PRESCRIPTION DRUG MONITORING PROGRAM REVIEWED*: No *COPY OF PRESCRIPTION DRUG MONITORING REPORT IN PATIENT MOLLY: No Instructions: 10 Things You Can Do to Manage Your COVID-19 Symptoms at Home - [facility] [place] (04/14/[place]), Symptoms of COVID-19 - [facility] [place] (11/21/2020), COVID-19: What to Do If You Are Sick- [facility] [place] 2[place] (12/14/2020) Referrals: Brianna Toro SENIOR FUNCTIONAL ANALYST [Primary Care Provider] - Forms: ED Department Discharge Additional Instructions: You should take acetaminophen 500-1000 mg every 6 hours as needed for fever and muscle aches. Please drink plenty of fluids and get plenty of rest over the next several days. We would recommend that she get a pulse oximeter from the pharmacy to keep an eye on your oxygen level. If your oxygen level drops below 91%, you should return to the ED for evaluation. You should return to the ER sooner if you start having any symptoms of shortness of breath or any other new or concerning symptoms. 1. Your COVID-19 screening is positive. That means you do have the coronavirus and you are considered contagious. Your vital signs and oxygen saturation are well enough that you were able to monitor your symptoms at home. Continue to monitor for trouble breathing, new confusion or inability to arouse, bluish lips or face or any of the other symptoms we discussed -if this occurs please return to the emergency room. 2. Please self quarantine over the next 10 days. Inform any persons that you have been in contact with since you started becoming symptomatic that you have tested positive; they should be made aware and take the appropriate steps as needed. 3. May alternate Tylenol and ibuprofen as needed for pain and fever management. 4. The [facility] department will be calling you and following up with you. The [place] COVID 19 Hotline phone number , They are open Saturday - Saturday 7am - 7pm. Follow up with your primary care provider for re-evaluation and re-testing after the 10 day quarantine and discuss when you should be seen. [facility] - [facility] [address] [place] [address] [facility] [address] [place] [address] The patient is informed of any results of their evaluation and diagnostic workup and all questions are answered. They are given discharge instructions and return precautions. The patient is stable for discharge. The patient states they understand and agree with the plan and that they will return if their symptoms get worse or if they have any new concerns. The following information is given to patients seen in the emergency department who are being discharged to home. This information is to outline your options for follow-up care. We provide all patients seen in our emergency department with a follow-up referral. The need for follow-up, as well as the timing and circumstances, are variable depending upon the specifics of your emergency department visit. If you don't have a primary care physician on staff, we will provide you with a referral. We always advise you to contact your personal physician following an emergency department visit to inform them of the circumstance of the visit and for follow-up with them and/or the need for any referrals to a consulting specialist. The emergency department will also refer you to a specialist when appropriate. This referral assures that you have the opportunity for follow-up care with a specialist. All of these measure are taken in an effort to provide you with optimal care, which includes your follow-up. Under all circumstances we always encourage you to contact your private physician who remains a resource for coordinating your care. When calling for follow-up care, please make the office aware that this follow-up is from your recent emergency room visit. If for any reason you are refused follow-up, please contact the [facility] Emergency Department at and asked to speak to the emergency department charge nurse. Sepsis Event Note (ED) - Evaluation Sepsis Screening Result: No Definite Risk
[2021-08-18 14:32] VITALS: BP 141/95; PULSE 93
[2021-08-18] MEDS ORDERED: Iopamidol 755 MG/ML 500 ML Multipack Bottle IVPUSH ONE (15:46)
== END 2021-08-18 14:37 | disposition home or self-care (01) ==
LOC: MW.ED 10:17
DX: U07.1 COVID-19 (principal); E66.9 Obesity, unspecified; Z68.36 Body mass index [BMI] 36.0-36.9, adult; Z79.899 Other long term (current) drug therapy
CPT/HCPCS: 0240U; 71045; 71275; 80053; 85025; 96372; 99284; J1885; Q9967